=== PATIENT | female | born 1945 | race Caucasian/White ===

== ENCOUNTER → 2017-09-29 | Outpatient (CLI) | payer OTHER ==
[~2017-09-29] MED LIST: ALBU90OI INH; ASPI81EC; ASPI81EC PO; ATEN50; ATEN50 PO; ATOR10; Amoxicillin500 MG PO; CITA20 PO; CLOP75; CLOP75 PO; FISH1000 PO; FLAX PO; GINGER ROOT PO; HYDCHL25 PO; LISI10; LISI20 PO; MECL25 PO; METF500 PO; MULVITA PO; MULVITMINE; MULVITMINF PO; PRAV20 PO; PROM25S PR; RANI150 PO; VITB100 PO; VITNEPH PO; [UNRECOGNIZED DRUG - REMARK]
== END | disposition home or self-care (01) ==
LOC: LAB SHORT 09:52 → LAB EV 09:52
DX: R30.0 Dysuria (principal)
CPT/HCPCS: 87077; 87086; 87186

== ENCOUNTER 2017-11-03 05:39 | Day surgery (SDC) | payer OTHER ==
[~2017-11-03] VITALS: Ht 160 cm; Wt 171.0 kg
[2017-11-03] MEDS ORDERED: LISI20 PO (06:27)
[2017-11-03] MEDS ORDERED: MECL12.5 PO (06:31)
[2017-11-03] MEDS ORDERED: SIMV40 PO (06:31)
[2017-11-03] MEDS ORDERED: GABA100 PO (06:32)
== END 2017-11-03 13:00 | disposition home or self-care (01) ==
LOC: MHTC 05:39
DX: I25.10 Atherosclerotic heart disease of native coronary artery without angina pectoris (principal); T82.855A Stenosis of coronary artery stent, initial encounter; I34.0 Nonrheumatic mitral (valve) insufficiency; I73.9 Peripheral vascular disease, unspecified; E78.00 Pure hypercholesterolemia, unspecified; E78.5 Hyperlipidemia, unspecified; Z95.5 Presence of coronary angioplasty implant and graft; I25.2 Old myocardial infarction; I12.9 Hypertensive chronic kidney disease with stage 1 through stage 4 chronic kidney disease, or unspecified chronic kidney disease; E11.22 Type 2 diabetes mellitus with diabetic chronic kidney disease; N18.9 Chronic kidney disease, unspecified; E66.01 Morbid (severe) obesity due to excess calories; Z79.02 Long term (current) use of antithrombotics/antiplatelets; Z79.84 Long term (current) use of oral hypoglycemic drugs; Z79.899 Other long term (current) drug therapy; Z79.82 Long term (current) use of aspirin; Z82.49 Family history of ischemic heart disease and other diseases of the circulatory system; Z68.30 Body mass index [BMI] 30.0-30.9, adult
CPT/HCPCS: 93458; 99152; 99153; C1769; C1894; J1644; J2250; J3010; J7030; J7040; Q9967

== ENCOUNTER → 2018-02-05 | Outpatient (CLI) | payer OTHER ==
[~2018-02-05] MED LIST changes: +GABA100 PO; +MECL12.5 PO; +SIMV40 PO
== END | disposition home or self-care (01) ==
LOC: LAB SHORT 09:40 → LAB EV 09:40
DX: R30.0 Dysuria (principal)
CPT/HCPCS: 87077; 87086; 87186

== ENCOUNTER 2019-08-24 11:23 | Emergency (ER) | payer OTHER ==
[~2019-08-24] VITALS: Ht 157.5 cm; Wt 86.2 kg
[2019-08-24] MEDS ORDERED: OXYC5 PO (12:39)
== END 2019-08-24 13:06 | disposition home or self-care (01) ==
LOC: ER 11:23
DX: S52.502A Unspecified fracture of the lower end of left radius, initial encounter for closed fracture (principal); S90.32XA Contusion of left foot, initial encounter; Z88.5 Allergy status to narcotic agent; Z88.8 Allergy status to other drugs, medicaments and biological substances; Z79.899 Other long term (current) drug therapy; W19.XXXA Unspecified fall, initial encounter
CPT/HCPCS: 29125; 73110; 99283-25; A9270

== ENCOUNTER 2020-03-05 03:15 | Inpatient (IN) | payer OTHER ==
[~2020-03-05] VITALS: Ht 167.6 cm; Wt 93.0 kg
[~2020-03-05 03:15] MED LIST changes: +OXYC5 PO
[2020-03-05] MEDS ORDERED: OMEP20ER PO (03:40)
[2020-03-05] MEDS ORDERED: GLIP5 PO (03:43)
[2020-03-05] MEDS ORDERED: Mirapex0.125 MG PO (03:44)
[2020-03-05] MEDS ORDERED: MELO7.5 PO (03:44)
[2020-03-05 03:54] LABS: BASOPHILS ABSOLUTE AUTO 0.09 K/mm3 (0.00-0.23); BASOPHILS PERCENT AUTO 1 % (0-2); EOSINOPHILS ABSOLUTE AUTO 0.62 K/mm3 (0.00-0.68); EOSINOPHILS PERCENT AUTO 5 % (0-6); Hematocrit 36.3 % (33.0-51.0); Hemoglobin 11.6 g/dL (11.5-16.0); IMMATURE GRAN ABSOLUTE AUTO 0.05 K/mm3 (0.00-0.10); IMMATURE GRAN PERCENT AUTO 0 % (0-1); LYMPHOCYTES ABSOLUTE AUTO 4.97 K/mm3 (0.84-5.20); LYMPHOCYTES PERCENT AUTO 39 % (21-46); MONOCYTES ABSOLUTE AUTO 0.51 K/mm3 (0.16-1.47); MONOCYTES PERCENT AUTO 4 % (4-13); Mean Corpuscular HGB 30.6 pg (26.0-34.0); Mean Corpuscular Volume 96 fL (80-100); Mean Platelet Volume 10.1 fL (9.1-12.4); NEUTROPHILS ABSOLUTE AUTO 6.48 K/mm3 (1.96-9.15); NEUTROPHILS PERCENT AUTO 51 % (41-73); Platelet Count 397 K/mm3 (150-400); RDW Coefficient Variation 13.7 % (11.7-14.2); RDW Standard Deviation 48.2 fL (35.1-46.3); Red Blood Cell Count 3.79 M/mm3 (3.80-5.20); White Blood Cell Count 12.72 K/mm3 (4.00-11.30)
[2020-03-05 04:10] LABS: Albumin, Blood 3.2 g/dL (3.4-5.0); Albumin/Globulin Ratio 0.8 (0.8-1.8); Bilirubin, Total 0.5 mg/dL (0.1-1.0); Bun/Creatinine Ratio 14.2 (12.0-20.0); Creatinine, Blood 1.06 mg/dL (0.40-1.00); Potassium, Blood 4.2 mmol/L (3.5-5.5); Total Protein, Blood 7.2 g/dL (6.4-8.2); Troponin I 0.119 ng/mL (0.000-0.040)
[2020-03-05 05:45] LABS: Influenza A, PCR Negative (NEGATIVE); Influenza B, PCR Negative (NEGATIVE); Resp Syncytial Virus, PCR Negative (NEGATIVE); SARS-Cov-2 (COVID-19) PCR, MMC Negative (NEGATIVE)
[2020-03-05 05:54] LABS: PCO2 Arterial 35.7 mmHg (35-45); PO2 Arterial 104 mmHg (80-100); pH Blood Arterial 7.33 (7.35-7.45)
--- NOTE | 2020-03-05 09:21 | NUR ---
ASSUMED CARE FROM POLICY ANALYST PT ARRIVED TO PCU THIS MORNING AT APPROXIMATELY 0800. BP IS SLIGHTLY ELEVATED BUT PT HAS BEEN GIVEN MORNING MEDICATIONS. PT ARRIVED ON BIPAP BUT WAS CHANGED TO NC 6L BY RESPIRATORY THERAPY. PT WAS ABLE TO AMBULATE TO THE BATHROOM UPON ARRIVAL TO THE ROOM. PT IS NOW RESTING IN BED. PT DENIES PAIN AND DISCOMFORT AT THIS TIME. CBG WAS ELEVATED WELL; INSULIN WAS PROVIDED PER EMAR ORDER. TELE BOX CONFIRMED WITH LOI LANG, U TECH; SR HR 99.
[2020-03-05] MEDS ORDERED: MELATONIN5 M1 PO (09:25)
[2020-03-05] MEDS ORDERED: METF500 PO (09:28)
[2020-03-05] MEDS ORDERED: LISI20 PO (09:29)
[2020-03-05] MEDS ORDERED: MOTION RELIEF25 MG PO (09:31)
[2020-03-05] MEDS ORDERED: MECL25 PO (09:32)
--- NOTE | 2020-03-05 13:10 | NUR ---
AT APPROXIMATELY 1215 THE BRASS MOLDER HELPER CALLED JOHNNA ANDRADE INTO THE ROOM THE PT WAS ACTIVELY VOMITTING. AFTER ASSESSING THE PT IT WAS FOUND THAT HER TONGUE AND LIPS WERE SWELLING AND APPEARED TO BE AN ALLERGIC REACTION. DR. COVARRUBIAS WAS CALLED AND IMMEDIATELY CAME TO BEDSIDE. PT WAS GIVEN SOLUMEDROL, BENADRYL AND ZOFRAN TO HELP WITH THE NAUSEA AND REACTION. PT'S SATURATION MAINTAINED ABOVE 92% ON O2. PT DENIED PAIN, SOB OR ITCHING. PT IS IN HER BED RESTING AT THIS TIME
--- NOTE | 2020-03-05 19:13 | NUR ---
NO ACUTE EVENTS THE REST OF THE SHIFT POST ALLERGIC EVENT, VSS. PATIENT ALERT AND ORIENTED THROUGH SHIFT, PATIENT STANDBY ASSIST TO BATHROOM, PATIENT ALMOST LOST BALANCE ONCE THIS SHIFT WHILE WALKING WITH THIS RN. IV ABX WERE ONLY NEW MEDS, CHANGED AFTER ALLERGIC EVENT, NO FURTHER ISSUES WITH MEDICATION REACTIONS THIS SHIFT. LACTIC ACID ELEVATED, BLOOD SUGAR ELEVATED THROUGH SHIFT. PATIENT WAS ABLE TO TOLERATE PO INTAKE FOR DINNER, DENIED CHEST PAIN PRESSURE THIS SHIFT TO THIS RN.
[2020-03-06 04:32] LABS: BASOPHILS ABSOLUTE AUTO 0.02 K/mm3 (0.00-0.23); BASOPHILS PERCENT AUTO 0 % (0-2); EOSINOPHILS PERCENT AUTO 0 % (0-6); Hemoglobin 10.2 g/dL (11.5-16.0); IMMATURE GRAN ABSOLUTE AUTO 0.14 K/mm3 (0.00-0.10); IMMATURE GRAN PERCENT AUTO 1 % (0-1); LYMPHOCYTES ABSOLUTE AUTO 1.55 K/mm3 (0.84-5.20); LYMPHOCYTES PERCENT AUTO 9 % (21-46); MONOCYTES ABSOLUTE AUTO 0.45 K/mm3 (0.16-1.47); MONOCYTES PERCENT AUTO 3 % (4-13); Mean Corpuscular HGB 30.4 pg (26.0-34.0); Mean Corpuscular HGB Conc 31.9 g/dL (31.5-36.5); Mean Corpuscular Volume 95 fL (80-100); Mean Platelet Volume 9.9 fL (9.1-12.4); NEUTROPHILS ABSOLUTE AUTO 14.55 K/mm3 (1.96-9.15); NEUTROPHILS PERCENT AUTO 87 % (41-73); Platelet Count 333 K/mm3 (150-400); RDW Coefficient Variation 13.9 % (11.7-14.2); RDW Standard Deviation 48.6 fL (35.1-46.3); Red Blood Cell Count 3.36 M/mm3 (3.80-5.20); White Blood Cell Count 16.71 K/mm3 (4.00-11.30)
--- NOTE | 2020-03-06 04:47 | NUR ---
SHIFT SUMMARY PT STATED FEELING MUCH BETTER T/O SHIFT. PT UP TO BATHROOM WITH ASSISTANCE, NO SOB AND NO DROP IN O2 SATS. PT ON 3LPM VIA NC WITH 02 SATS >90%. BP STABLE, UP TO 166/96 IN AM. HR 80-100'S. PT REPORTED NO DIFFICULTIES BREATHING, LUNGS MOSTLY CLEAR/DIM. PT CURRENTLY SLEEPING IN BED, HOB 30.
[2020-03-06 04:48] LABS: Bun/Creatinine Ratio 18.7 (12.0-20.0); Calcium, Blood 9.8 mg/dL (8.5-10.1); Creatinine, Blood 1.93 mg/dL (0.40-1.00); Potassium, Blood 4.6 mmol/L (3.5-5.5)
--- NOTE | 2020-03-06 07:59 | NUR ---
ASSUMED CARE FROM NOC RN PT WAS SLEEPING AT THE TIME OF SHIFT CHANGE. PT AWOKE SOON AFTER TO USE THE BSC AND HAVE HER BLOOD SUGAR TAKEN. PT IS CURRENTLY ON 3L O2 VIA NC TO MAINTAIN SATS ABOVE 92%. PT DENIES ANY PAIN OR DISCOMFORT. VS STABLE; CBG SLIGHTLY ELEVATED; INSULIN AND MORNING MEDS ADMINISTERED. PT IS NOW RESTING IN BED, TALKING WITH FAMILY ON THE PHONE WHILE EATING BREAKFAST
[2020-03-06 16:11] LABS: SARS COV-2 IGG AB Negative (Negative); SARS COV-2 IGM AB Negative (Negative)
--- NOTE | 2020-03-06 17:15 | NUR ---
TRANSFER OF CARE TO MEDICAL UNIT PT LEFT PCU AT APPROXIMATELY 1700 VIA WHEELCHAIR ACCOMPANIED BY REMELT WORKER. PT WAS TAKEN WITH PERSONAL BELONGINGS AND HER HOSPITAL PROVIDED INSULIN TO MEDICAL RM 303; REPORT WAS GIVEN TO JOHNNA JAVIER. VS STABLE; PT ON 3L O2 VIA NC
--- NOTE | 2020-03-06 18:05 | NUR ---
SHIFT SUMMARY PATIENT TO THE FLOOR LATE THIS AFTERNOON. PATIENT ARRIVED VIA WHEELCHAIR. PATIENT TRANSFERED TO THE CHAIR INDEPENDENTLY. PATIENT ALERT AND ORIENTED. PATIENT REMAINS ON 3L O2. PATIENT WITHOUT RESPIRATORY DISRTESS. PATIENT DENIES PAIN OR OTHER NEEDS. PATIENT SITTING UP IN BED EATING DINNER, WATCHING TELEVISION.
--- NOTE | 2020-03-06 19:49 | NUR ---
PHYSICIAN COMMUNICATION THIS RN SPOKE WITH SIGNS SALES REPRESENTATIVE PHYSICIAN, BRIAN NASH, TO NOTIFY HER THAT THE PATIENT TYPICALLY TAKES 5 MG MELATONIN PO NIGHTLY AT HOME AND SHE WAS REQUESTING TO HAVE IT ORDERED WHILE HERE IN THE HOSPITAL. SHANNAN NASH APPROVED OF THE ORDER.
[2020-03-07 05:04] LABS: BASOPHILS ABSOLUTE AUTO 0.01 K/mm3 (0.00-0.23); BASOPHILS PERCENT AUTO 0 % (0-2); EOSINOPHILS ABSOLUTE AUTO 0.01 K/mm3 (0.00-0.68); EOSINOPHILS PERCENT AUTO 0 % (0-6); Hematocrit 29.8 % (33.0-51.0); Hemoglobin 9.7 g/dL (11.5-16.0); IMMATURE GRAN ABSOLUTE AUTO 0.15 K/mm3 (0.00-0.10); IMMATURE GRAN PERCENT AUTO 1 % (0-1); LYMPHOCYTES ABSOLUTE AUTO 2.18 K/mm3 (0.84-5.20); LYMPHOCYTES PERCENT AUTO 12 % (21-46); MONOCYTES ABSOLUTE AUTO 1.04 K/mm3 (0.16-1.47); MONOCYTES PERCENT AUTO 6 % (4-13); Mean Corpuscular HGB 31.1 pg (26.0-34.0); Mean Corpuscular HGB Conc 32.6 g/dL (31.5-36.5); Mean Corpuscular Volume 96 fL (80-100); Mean Platelet Volume 10.3 fL (9.1-12.4); NEUTROPHILS ABSOLUTE AUTO 15.25 K/mm3 (1.96-9.15); NEUTROPHILS PERCENT AUTO 82 % (41-73); Platelet Count 297 K/mm3 (150-400); RDW Coefficient Variation 13.9 % (11.7-14.2); RDW Standard Deviation 48.4 fL (35.1-46.3); Red Blood Cell Count 3.12 M/mm3 (3.80-5.20); White Blood Cell Count 18.64 K/mm3 (4.00-11.30)
[2020-03-07 05:21] LABS: Bun/Creatinine Ratio 29.7 (12.0-20.0); Calcium, Blood 9.3 mg/dL (8.5-10.1); Creatinine, Blood 1.85 mg/dL (0.40-1.00); Potassium, Blood 4.8 mmol/L (3.5-5.5)
--- NOTE | 2020-03-07 05:51 | NUR ---
SHIFT SUMMARY PATIENT ALERT AND ORIENTED. STAYED IN BED AND RESTED ALL NIGHT, EXCEPT FOR WHEN SHE NEEDED TO USE THE RESTROOM. PT HAD NO COMPLAINTS OF PAIN OR SHORTNESS OF BREATH. IV PATENT AND FLUSHED. BED IN LOWEST POSITION WITH WHEELS LOCKED. CALL LIGHT WITHIN REACH. REPORT GIVEN TO ONCOMING RN.
[2020-03-07 13:32] LABS: Influenza A, PCR NEGATIVE (NEGATIVE); Influenza B, PCR NEGATIVE (NEGATIVE); Resp Syncytial Virus, PCR NEGATIVE (NEGATIVE); SARS-Cov-2 (COVID-19) PCR, MMC NEGATIVE (NEGATIVE)
--- NOTE | 2020-03-07 18:21 | NUR ---
PT RESTING IN BED AFTER EATING DINNER AND MEDICATION ADMIN. PT MAKES NO COMPLAINTS AT THIS TIME. IV LINE IS WNL AND SL. PT IS ALERT AND ORIENTED X4. STAFF WILL CONT. TO MONITOR.
--- NOTE | 2020-03-08 05:52 | NUR ---
SHIFT SUMMARY PATIENT ALERT AND ORIENTED. HAD NO COMPLAINTS OF PAIN OR SHORNTESS OF BREATH. PATIENT WAS ABLE TO SLEEP WELL OVERNIGHT AND HAD MINIMAL NEEDS. IV PATENT AND FLUSHED. BED IN LOWEST POSITION WITH WHEELS LOCKED. CALL LIGHT WITHIN REACH. REPORT GIVEN TO ONCOMING RN.
[2020-03-08 07:49] LABS: Bun/Creatinine Ratio 36.8 (12.0-20.0); Calcium, Blood 9.3 mg/dL (8.5-10.1); Creatinine, Blood 1.52 mg/dL (0.40-1.00); Potassium, Blood 4.5 mmol/L (3.5-5.5)
--- NOTE | 2020-03-08 18:15 | NUR ---
PT RESTING IN BED AFTER DINNER AND PM MEDICATIONS. COREG HELD DUE TO LOW BP AND MSG LEFT FOR MD. PT IS ALERT AND ORIENTED, IV FLUSHED, SL AND WNL. PT MAKES NO COMPLAINTS AT THIS TIME. STAFF WILL CONT. TO MONITOR.
[2020-03-09 04:59] LABS: Calcium, Blood 9.6 mg/dL (8.5-10.1); Creatinine, Blood 1.44 mg/dL (0.40-1.00); Potassium, Blood 3.9 mmol/L (3.5-5.5)
--- NOTE | 2020-03-09 05:54 | NUR ---
SHIFT SUMMARY PATIENT ALERT AND ORIENTED. HAD NO COMPLAINTS OF PAIN OR SHORTNESS OF BREATH. WAS ABLE TO SLEEP WELL OVERNIGHT. IV PATENT AND FLUSHED. BED IN LOWEST POSITION WITH WHEELS LOCKED. CALL LIGHT WITHIN REACH. REPORT GIVEN TO ONCOMING RN.
[2020-03-09] MEDS ORDERED: CARV6.25 PO (12:10)
[2020-03-09] MEDS ORDERED: BASAGLAR K100 UNIT/1 SC (12:11)
[2020-03-09] MEDS ORDERED: INSULANPEN SC (12:12)
[2020-03-09] MEDS ORDERED: FURO40 PO (12:12)
--- NOTE | 2020-03-09 15:13 | NUR ---
REVIEW D'C WITH PATIENT. AWARE HAS F/U APPT 03/16 AT 0900. REVIEW ALL MEDS. GIVEN HIGH SLIDING SCALE FOR SHORT ACTING INSULIN. AWARE CAN RETURN TO E.R IF ANY PROBLEMS. ANSWER ALL QUESTIONS. IN W/C TO POV WITH S.O. DRIVING. IV D'C W/NO SWELLING OR BRUISING.
== END 2020-03-09 15:17 | disposition home or self-care (01) | DRG 280 ==
LOC: ER 03:15 → PCU 05:14 → ERHOLD 05:14 → PCU 08:13 → MEDS 03-06 17:10 → ENPENDDIS 03-09 11:01 → MEDS 03-09 15:17
PROVIDERS: Emergency Medicine; Internal Medicine; ADMIT Family Medicine
PROC: 5A09357 Assistance with Respiratory Ventilation, Less than 24 Consecutive Hours, Continuous Positive Airway Pressure (ICD-10-PCS; principal; 2020-03-05)
PROC: 3E02340 Introduction of Influenza Vaccine into Muscle, Percutaneous Approach (ICD-10-PCS; 2020-03-05)
DX: I13.0 Hypertensive heart and chronic kidney disease with heart failure and stage 1 through stage 4 chronic kidney disease, or unspecified chronic kidney disease (principal); J96.01 Acute respiratory failure with hypoxia; I21.A1 Myocardial infarction type 2; I50.23 Acute on chronic systolic (congestive) heart failure; E87.2 Acidosis; N17.9 Acute kidney failure, unspecified; R65.10 Systemic inflammatory response syndrome (SIRS) of non-infectious origin without acute organ dysfunction; Z79.82 Long term (current) use of aspirin; I25.10 Atherosclerotic heart disease of native coronary artery without angina pectoris; Z95.1 Presence of aortocoronary bypass graft; I77.1 Stricture of artery; N18.30 Chronic kidney disease, stage 3 unspecified; K21.9 Gastro-esophageal reflux disease without esophagitis; E11.22 Type 2 diabetes mellitus with diabetic chronic kidney disease; Z79.84 Long term (current) use of oral hypoglycemic drugs; E78.5 Hyperlipidemia, unspecified; G25.81 Restless legs syndrome; J45.909 Unspecified asthma, uncomplicated; T78.3XXA Angioneurotic edema, initial encounter; T88.7XXA Unspecified adverse effect of drug or medicament, initial encounter; T36.95XA Adverse effect of unspecified systemic antibiotic, initial encounter; Z20.822 Contact with and (suspected) exposure to COVID-19; Z23 Encounter for immunization
CPT/HCPCS: 0241U; 36415; 36600; 71045; 80048; 80053; 82803; 82947; 83036; 83605; 83880; 84145; 84484; 85025; 86769; 87040; 87070; 87205; 93005; 93010; 93308; 93321; 94660; 94760; 94761; 94762; 96365; 99285-25; A9270; G0008; J0456; J0696; J1200; J1644; J1650; J1815; J1940; J1956; J2405; J2543; J2930; J7050; Q2038

== ENCOUNTER 2021-04-15 07:29 | Day surgery (SDC) | payer OTHER ==
[~2021-04-15] VITALS: Ht 157.5 cm; Wt 86.3 kg
[~2021-04-15 07:29] MED LIST changes: +BASAGLAR K100 UNIT/1 SC; +CARV6.25 PO; +Cleocin HCl300 MG PO; +FURO40 PO; +GLIP5 PO; +INSULANPEN SC; +MELATONIN5 M1 PO; +MELO7.5 PO; +MOTION RELIEF25 MG PO; +Mirapex0.125 MG PO; +OMEP20ER PO
--- NOTE | 2021-04-15 08:27 | NUR ---
04/15/21 0827 CAESAR PEREZ TETRACAINE DROP INSTILLED AT 0819 PLEDGETT INSERTED AT 0821
== END 2021-04-15 09:59 | disposition home or self-care (01) ==
LOC: ORSCSDS 07:29
PROVIDERS: Ophthalmology
PROC: 08RJ3JZ Replacement of Right Lens with Synthetic Substitute, Percutaneous Approach (ICD-10-PCS; principal; 2021-04-15 09:00)
DX: H25.11 Age-related nuclear cataract, right eye (principal); E11.36 Type 2 diabetes mellitus with diabetic cataract; I25.10 Atherosclerotic heart disease of native coronary artery without angina pectoris; E78.5 Hyperlipidemia, unspecified; I10 Essential (primary) hypertension; E66.01 Morbid (severe) obesity due to excess calories; Z68.36 Body mass index [BMI] 36.0-36.9, adult; I25.2 Old myocardial infarction; I50.9 Heart failure, unspecified; N18.9 Chronic kidney disease, unspecified; Z79.4 Long term (current) use of insulin; Z79.899 Other long term (current) drug therapy
CPT/HCPCS: 82947; J2001; J2250; J3010; J3301; J7040; V2632

== ENCOUNTER 2021-05-13 08:06 | Day surgery (SDC) | payer OTHER ==
[~2021-05-13] VITALS: Ht 157.5 cm; Wt 85.5 kg
== END 2021-05-13 10:52 | disposition home or self-care (01) ==
LOC: ORSCSDS 08:06
PROVIDERS: Ophthalmology
PROC: 08RK3JZ Replacement of Left Lens with Synthetic Substitute, Percutaneous Approach (ICD-10-PCS; principal; 2021-05-13 10:00)
DX: H25.12 Age-related nuclear cataract, left eye (principal); Z79.899 Other long term (current) drug therapy; I25.10 Atherosclerotic heart disease of native coronary artery without angina pectoris; E11.9 Type 2 diabetes mellitus without complications; E78.5 Hyperlipidemia, unspecified; I10 Essential (primary) hypertension; Z79.82 Long term (current) use of aspirin; Z79.4 Long term (current) use of insulin
CPT/HCPCS: 82947; J2001; J2250; J3010; J3301; J7040; V2632

== ENCOUNTER → 2021-05-19 | Outpatient (CLI) | payer OTHER | END | disposition home or self-care (01) | LOC: LAB 12:00 → LAB SHORT 12:00 | DX: L08.9 Local infection of the skin and subcutaneous tissue, unspecified (principal) | CPT/HCPCS: 87070; 87075; 87077; 87186; 87205 ==

== ENCOUNTER 2023-01-24 02:19 | Observation (INO) | payer OTHER ==
[~2023-01-24] VITALS: Ht 157.5 cm; Wt 82.8 kg
[~2023-01-24 02:19] MED LIST changes: -ASPI81EC PO; +Aspir 8181 MG PO; +Celexa20 MG PO; +GLIP10ER PO; +LOSA25 PO; +MIRALAX17 GM PO
[2023-01-24] MEDS ORDERED: SEMGLEE (Y100 UNIT/2 SQ (02:42)
[2023-01-24 02:55] LABS: BASOPHILS ABSOLUTE AUTO 0.05 K/mm3 (0.00-0.23); BASOPHILS PERCENT AUTO 0 % (0-2); EOSINOPHILS ABSOLUTE AUTO 0.24 K/mm3 (0.00-0.68); EOSINOPHILS PERCENT AUTO 2 % (0-6); Hematocrit 32.1 % (33.0-51.0); Hemoglobin 10.6 g/dL (11.5-16.0); IMMATURE GRAN ABSOLUTE AUTO 0.03 K/mm3 (0.00-0.10); IMMATURE GRAN PERCENT AUTO 0 % (0-1); LYMPHOCYTES ABSOLUTE AUTO 2.11 K/mm3 (0.84-5.20); LYMPHOCYTES PERCENT AUTO 19 % (21-46); MONOCYTES ABSOLUTE AUTO 0.38 K/mm3 (0.16-1.47); MONOCYTES PERCENT AUTO 3 % (4-13); Mean Corpuscular HGB 30.7 pg (26.0-34.0); Mean Corpuscular Volume 93 fL (80-100); Mean Platelet Volume 9.4 fL (9.1-12.4); NEUTROPHILS ABSOLUTE AUTO 8.35 K/mm3 (1.96-9.15); NEUTROPHILS PERCENT AUTO 75 % (41-73); Platelet Count 297 K/mm3 (150-400); Red Blood Cell Count 3.45 M/mm3 (3.80-5.20); White Blood Cell Count 11.16 K/mm3 (4.00-11.30)
[2023-01-24 04:06] LABS: Ethanol (Alcohol), Blood, Med <3 mg/dL; Thyroid Stimulating Hormone 0.636 uIU/mL (0.360-4.800)
[2023-01-24 04:08] LABS: Alanine Aminotransfer (ALT/SGP 12 U/L (12-78); Albumin, Blood 1.9 g/dL (3.4-5.0); Albumin/Globulin Ratio 0.7 (0.8-1.8); Alk Phos 70 U/L (50-136); Anion Gap 4 mmol/L (6-16); Aspartate Aminotrans (AST/SGOT 12 U/L (12-37); Bilirubin, Total <0.1 mg/dL (0.1-1.0); Blood Urea Nitrogen 15 mg/dL (8-24); Bun/Creatinine Ratio 18.6 (12.0-20.0); CO2, Blood 19 mmol/L (21-32); Calcium, Blood 6.1 mg/dL (8.5-10.1); Chloride, Blood 127 mmol/L (98-108); Creatinine, Blood 0.81 mg/dL (0.40-1.00); Globulin, Blood 2.6 g/dL (2.2-4.0); Glomerular Filtration Rate 76 (60-); Glucose, Blood 145 mg/dL (70-99); Magnesium, Blood 1.1 mg/dL (1.6-2.4); Phosphorus, Blood 1.6 mg/dL (2.5-4.9); Potassium, Blood 2.5 mmol/L (3.5-5.5); Sodium, Blood 150 mmol/L (136-145); Total Protein, Blood 4.5 g/dL (6.4-8.2)
[2023-01-24 04:19] LABS: Base Excess Venous -2.3 mmol/L; PCO2 Venous 48.9 mmHg (38-42)
[2023-01-24 04:22] LABS: International Normalized Ratio 0.97; Prothrombin Time Results 10.2 Sec (9.7-11.5)
[2023-01-24 04:23] LABS: Source, Urine Straight Cath
[2023-01-24 04:26] LABS: Bilirubin, Urine Neg (Neg); Blood, Urine 1+ (Neg); Glucose Qualitative, Urine Neg (Neg); Ketones, Urine Neg (Neg); Leukocyte Esterase, Urine 1+ (Neg); Nitrite, Urine Neg (Neg); Protein, Urine 3+ (Neg); Urobilinogen, Urine NORM (Normal)
[2023-01-24 04:35] LABS: Color, Urine Pale Yellow (P-Yellow)
[2023-01-24 04:36] LABS: Appearance, Urine Hazy (Clear)
[2023-01-24 04:37] LABS: Amorphous Light (0-Heavy); Bacteria Few /hpf; Granular Casts 0-2 /lpf (0); Red Blood Cells, Urine 0-2 /hpf (0-2); Squamous Epithelial Cells Few /hpf (Few)
[2023-01-24 04:43] LABS: Influenza A, PCR NEGATIVE (NEGATIVE); Influenza B, PCR NEGATIVE (NEGATIVE); Resp Syncytial Virus, PCR NEGATIVE (NEGATIVE); SARS-Cov-2 (COVID-19) PCR, MMC NEGATIVE (NEGATIVE)
[2023-01-24 05:14] LABS: U Amphetamine Screen Not Detected; U Barbituate Screen Not Detected; U Benzodiazapine Screen Not Detected; U Buprenorphine Screen Not Detected; U Cannabinoids Screen Not Detected; U Cocaine Screen Not Detected; U Methadone Screen Not Detected; U Methamphetamine Screen Not Detected; U Opiates Screen Not Detected; U Oxycodone Screen Not Detected; U Phencyclidine Screen Not Detected
[2023-01-24 10:31] VITALS: BP 111/97
[2023-01-24 10:34] VITALS: BP 121/86
[2023-01-24 14:46] LABS: Blood Urea Nitrogen 16 mg/dL (8-24); Bun/Creatinine Ratio 16.1 (12.0-20.0); CO2, Blood 23 mmol/L (21-32); Chloride, Blood 112 mmol/L (98-108); Glomerular Filtration Rate 59 (60-); Glucose, Blood 155 mg/dL (70-99); Phosphorus, Blood 2.5 mg/dL (2.5-4.9); Potassium, Blood 4.3 mmol/L (3.5-5.5)
[2023-01-24 14:49] LABS: Anion Gap 4 mmol/L (6-16); Calcium, Blood 9.5 mg/dL (8.5-10.1); Sodium, Blood 139 mmol/L (136-145)
[2023-01-24 15:04] VITALS: BP 107/77
--- NOTE | 2023-01-24 16:20 | NUR ---
"Spiritual Care | Pt. Request. Pt. is awake and sitting up on the side of the bed when she welcomes my visit. Facilitate a life review and update since the Pts. last hospitalization. Listen with interest and emapthy. Pt. displayed evidence of engagement and trust. Prayed with Pt. Pt. verbalized gratitude for the spiritual carfe visit and welcomed this supervisor patching to return in the morning."
--- NOTE | 2023-01-24 18:37 | NUR ---
SUMMARY- PT A/O X4, UP TO BEDSIDE COMMODE INDEPENDANT AND STEADY ON FEET. STATES SHE FELT VERY TIRED THE DAYS PRIOR TO ADMIT. ELECTROLYTES ALL REPACED TODAY, FEELING BETTER ENERGY. TOLERATING FOOD AND FLUIDS. BLOOD SUGARS 160'S. WILL REPORT TO PUNEET OROPEZA
--- NOTE | 2023-01-24 18:45 | NUR ---
PT ADMITTED TO ROOM 362 VIA WHEELCHAIR, AMBULATED TO BED- (1020) ORIENTED TO ROOM AND CALL LIGHT. IVF INFUSING. WILL RECHECK RENAL LABS 1400. PT ALERT AND ORIENTED X4, VERBAL AND PLEASANT.
[2023-01-24 19:14] VITALS: BP 106/74
[2023-01-25 03:32] VITALS: BP 121/106
[2023-01-25 05:41] LABS: BASOPHILS ABSOLUTE AUTO 0.06 K/mm3 (0.00-0.23); BASOPHILS PERCENT AUTO 1 % (0-2); EOSINOPHILS ABSOLUTE AUTO 0.53 K/mm3 (0.00-0.68); EOSINOPHILS PERCENT AUTO 7 % (0-6); Hematocrit 33.3 % (33.0-51.0); Hemoglobin 10.9 g/dL (11.5-16.0); IMMATURE GRAN ABSOLUTE AUTO 0.02 K/mm3 (0.00-0.10); IMMATURE GRAN PERCENT AUTO 0 % (0-1); LYMPHOCYTES ABSOLUTE AUTO 3.72 K/mm3 (0.84-5.20); LYMPHOCYTES PERCENT AUTO 46 % (21-46); MONOCYTES ABSOLUTE AUTO 0.51 K/mm3 (0.16-1.47); MONOCYTES PERCENT AUTO 6 % (4-13); Mean Corpuscular HGB 30.7 pg (26.0-34.0); Mean Corpuscular HGB Conc 32.7 g/dL (31.5-36.5); Mean Corpuscular Volume 94 fL (80-100); Mean Platelet Volume 10.1 fL (9.1-12.4); NEUTROPHILS ABSOLUTE AUTO 3.34 K/mm3 (1.96-9.15); NEUTROPHILS PERCENT AUTO 41 % (41-73); Platelet Count 321 K/mm3 (150-400); RDW Standard Deviation 44.7 fL (35.1-46.3); Red Blood Cell Count 3.55 M/mm3 (3.80-5.20); White Blood Cell Count 8.18 K/mm3 (4.00-11.30)
[2023-01-25 06:18] LABS: Magnesium, Blood 1.9 mg/dL (1.6-2.4)
[2023-01-25 06:19] LABS: Albumin, Blood 2.8 g/dL (3.4-5.0); Albumin/Globulin Ratio 0.7 (0.8-1.8); Bilirubin, Total 0.2 mg/dL (0.1-1.0); Bun/Creatinine Ratio 17.3 (12.0-20.0); Calcium, Blood 9.5 mg/dL (8.5-10.1); Creatinine, Blood 1.04 mg/dL (0.40-1.00); Globulin, Blood 3.8 g/dL (2.2-4.0); Potassium, Blood 5.1 mmol/L (3.5-5.5)
[2023-01-25 06:22] LABS: Total Protein, Blood 6.6 g/dL (6.4-8.2)
[2023-01-25 07:31] VITALS: BP 189/95
[2023-01-25 11:45] VITALS: BP 101/82
[2023-01-25 14:42] VITALS: BP 131/80
--- NOTE | 2023-01-25 17:57 | NUR ---
SUMMARY- PT A/O X4, INDEPENDANT IN ROOM. ELECTROLYTES STABALIZED. PLAN FOR DC AFTER DINNER AFTER BLOOD SUGAR CHECKED. PLAN TO DECREASE LONG ACTING GLARGINE AND DC PRILOSEC. INFORMATION GIVEN ON ELECTROLYTE REPLACEMENT MG AND K AND ANTACID FOR HEART BURN. ALSO DIABETIC TEACHING. INSTRUCTED TO HAVE AN HS SNACK TONIGHT. IV DC. PT WILL DC AFTER DINNNER
--- NOTE | 2023-01-25 18:44 | NUR ---
PT DISCHARGED 1824 WITH DC INSTRUCTIONS. WHEELCHAIR OUTSIDE TO PRIVATE CAR, SON TO DRIVE PT HOME.
== END 2023-01-25 18:22 | disposition home or self-care (01) ==
LOC: ER 02:19 → MEDS 02:20
PROVIDERS: Emergency Medicine; Family Medicine; ADMIT Internal Medicine
DX: E87.6 Hypokalemia (principal); N39.0 Urinary tract infection, site not specified; K21.9 Gastro-esophageal reflux disease without esophagitis; I10 Essential (primary) hypertension; E83.42 Hypomagnesemia; E83.39 Other disorders of phosphorus metabolism; G25.81 Restless legs syndrome; E11.9 Type 2 diabetes mellitus without complications; Z72.0 Tobacco use; Z95.5 Presence of coronary angioplasty implant and graft; Z88.5 Allergy status to narcotic agent; Z88.1 Allergy status to other antibiotic agents
CPT/HCPCS: 0241U; 36415; 70450; 71045; 80053; 80069; 81001; 82140; 82803; 82947; 83605; 83690; 83735; 84100; 84443; 84484; 85025; 85610; 85730; 87086; 87147; 93005; 93010; 96361; 96365; 96366; 96367; 96368; 96372; 96375; 96376; 97161; 97165; 97530; 97535; 99285-25; A9270; G0378; J0744; J1650; J1815; J3475; J3480; J7030; J7060; J7120

== ENCOUNTER 2023-07-26 07:35 | Inpatient (IN) | payer OTHER ==
[~2023-07-26] VITALS: Ht 157.5 cm; Wt 79.2 kg
[~2023-07-26 07:35] MED LIST changes: +SEMGLEE (Y100 UNIT/2 SQ
[2023-07-26] MEDS ORDERED: Albuterol 2.5 MG/3 ML VIAL INH SCH (07:45)
[2023-07-26 07:52] LABS: Bicarbonate Venous 18.2 mmol/L (24.0-30.0); PCO2 Venous 49.2 mmHg (38-42)
[2023-07-26 07:53] LABS: pH Blood Venous 7.23 (7.34-7.37)
[2023-07-26 08:06] LABS: BASOPHILS ABSOLUTE AUTO 0.07 K/mm3 (0.00-0.23); BASOPHILS PERCENT AUTO 1 % (0-2); EOSINOPHILS ABSOLUTE AUTO 0.49 K/mm3 (0.00-0.68); EOSINOPHILS PERCENT AUTO 5 % (0-6); Hematocrit 35.1 % (33.0-51.0); Hemoglobin 11.3 g/dL (11.5-16.0); IMMATURE GRAN ABSOLUTE AUTO 0.02 K/mm3 (0.00-0.10); IMMATURE GRAN PERCENT AUTO 0 % (0-1); LYMPHOCYTES ABSOLUTE AUTO 3.95 K/mm3 (0.84-5.20); LYMPHOCYTES PERCENT AUTO 41 % (21-46); MONOCYTES ABSOLUTE AUTO 0.48 K/mm3 (0.16-1.47); MONOCYTES PERCENT AUTO 5 % (4-13); Mean Corpuscular HGB 31.2 pg (26.0-34.0); Mean Corpuscular HGB Conc 32.2 g/dL (31.5-36.5); Mean Corpuscular Volume 97 fL (80-100); Mean Platelet Volume 9.9 fL (9.1-12.4); NEUTROPHILS ABSOLUTE AUTO 4.58 K/mm3 (1.96-9.15); NEUTROPHILS PERCENT AUTO 48 % (41-73); Platelet Count 347 K/mm3 (150-400); RDW Coefficient Variation 14.1 % (11.7-14.2); RDW Standard Deviation 50.4 fL (35.1-46.3); Red Blood Cell Count 3.62 M/mm3 (3.80-5.20); White Blood Cell Count 9.59 K/mm3 (4.00-11.30)
[2023-07-26 08:30] LABS: Albumin, Blood 3.2 g/dL (3.4-5.0); Albumin/Globulin Ratio 0.8 (0.8-1.8); Bilirubin, Total 0.4 mg/dL (0.1-1.0); Bun/Creatinine Ratio 16.1 (12.0-20.0); Calcium, Blood 9.8 mg/dL (8.5-10.1); Creatinine, Blood 1.12 mg/dL (0.40-1.00); Globulin, Blood 3.9 g/dL (2.2-4.0); Magnesium, Blood 1.7 mg/dL (1.6-2.4); Potassium, Blood 4.7 mmol/L (3.5-5.5); Total Protein, Blood 7.1 g/dL (6.4-8.2)
[2023-07-26] MEDS ORDERED: Furosemide 10 MG/ML 4ML Vial IV ONE (09:50)
[2023-07-26 10:44] LABS: Base Excess Venous -4.9 mmol/L; Bicarbonate Venous 20.3 mmol/L (24.0-30.0); PCO2 Venous 48.6 mmHg (38-42); pH Blood Venous 7.27 (7.34-7.37)
[2023-07-26] MEDS ORDERED: Acetaminophen 500 MG Tab PO PRN (11:05)
[2023-07-26] MEDS ORDERED: Polyethylene Glycol 3350 17 gm PO PRN (11:05)
[2023-07-26] MEDS ORDERED: Insulin Human Lispro 100 Units/ML 3ML Syringe SC SCH (11:30)
[2023-07-26 14:18] VITALS: BP 154/103
[2023-07-26] MEDS ORDERED: NOVOLOG FL100 UNIT/3 SC (14:41)
[2023-07-26] MEDS ORDERED: ACET500 PO (14:42)
--- NOTE | 2023-07-26 15:00 | NUR ---
ARRIVAL TO UNIT AND O2: PATIENT ARRIVED TO UNIT ON AN OXYMIZER AT 6LPM. PATIENT DENIED SHORTNESS OF BREATH OR DIFFICULTY BREATHING. MINIMAL FINE CRACKLES HEARD IN BASES. OTHERWISE, LUNG SOUNDS CLEAR. PATIENT APPEARS IN NO DISTRESS. PATIENT ABLE TO ANSWER QUESTIONS AND EAT WITHOUT DESATURATIONS. WITHIN THE FIRST HOUR OF ARRIVAL, ABLE TO TO TITRATE THE PATIENT'S O2 DOWN TO 2L O2 VIA OXYMIZER. PATIENT O2 >95%. PATIENT ALERT AND ORIENTED X4. PATIENT FOLLOWING DIRECTIONS. VITALS STABLE WITH MAPS >65. SBP IN THE 150S. PATIENT DENIES CHEST PAIN OR DISCOMFORT. PATIENT REPORTS FATIGUE FROM LACK OF SLEEP AT HOME. PATIENT DENIES NAUSEA. TOLERATING PO INTAKE WITHOUT DIFFICULTY. REPORTS USE OF CANE/WALKER AT TIMES AT HOME. REPORTS UNDERSTANDING OF CALLING FOR OOB ACTIVITY. PUREWICK IN PLACE.
[2023-07-26] MEDS ORDERED: LORA10ER PO (15:13)
[2023-07-26] MEDS ORDERED: MethylPREDNISolone Sod Succ 125 MG Vial IV SCH (16:00)
[2023-07-26 16:05] VITALS: BP 148/83
[2023-07-26] MEDS ORDERED: Albuterol 2.5 MG/3 ML VIAL INH PRN (16:20)
--- NOTE | 2023-07-26 17:30 | NUR ---
"Spiritual Care | Pt. request Pt. is awake in bed when she welcomes my visit and invites me to grab a chair and visit for awhile. The Pt. is known to this visual education teacher form previous hospital visits. Faciliate a life review and conside matters of the needs of her famiily. Pt. verbalized that she felt the combination of allergians and having painted her bathroom had an impact of her hospitalization. Considered matters of mari and beleif as part of our visit. Pt. displayed evidence of a clear mind and keen awareness. Prayed with the Pt. Pt. verbalized gratitude for the spiritual care visit and welcomed this visual education teacher to return."
--- NOTE | 2023-07-26 18:35 | NUR ---
SHIFT SUMMARY: NEURO: PATIENT ALERT AND ORIENTED X4. PATIENT FOLLOWING DIRECTIONS AND ANSWERING QUESTIONS APPROPRIATELY. 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 PATIENT REPORTS OCCASIONAL USE OF CANE OR WALKER AT HOME. UNDERSTANDS NEED FOR STAFF ASSISTANCE AT THIS TIME. PATIENT DENIES PAIN. CARDIAC: PATIENT DENIES CHEST PAIN OR DISCOMFORT. VITALS STABLE WITH MAPS >65. HR IN THE 70-80S. NORMAL SINUS WITH OCCASIONAL PVCS. RESPIRATORY: PATIENT ARRIVED TO THE UNIT ON 6L VIA OXYMIZER. NO SHORTNESS OF BREATH OR RESPIRATORY DISTRESS NOTED. QUICKLY ABLE TO TITRATE PATIENT DOWN TO 2L O2 VIA OXYMIZER. SPO2 >95%. PATIENT CONTINUED TO DENY SHORTNESS OF BREATH. BIPAP AT BEDSIDE. PATIENT AGREES TO USE THIS WITH SLEEP OR NEEDED. GI/: PATIENT DENIES NAUSEA. TOLERATING PO INTAKE WITHOUT DIFFICULTY. PUREWICK IN PLACE. URINE IS A LIGHT, CLEAR YELLOW. PSYCHSOCIAL: PATIENT CALM AND COOPERATIVE. PATIENT REPORTS GOOD SUPPORT FROM HER SON AND SIGNIFICANT OTHER (WHO SHE LIVES WITH).
[2023-07-26 19:33] VITALS: BP 158/77
[2023-07-26] MEDS ORDERED: Docusate Sodium/Senna 1 Tab PO SCH (21:00)
[2023-07-26] MEDS ORDERED: Insulin Glargine-Yfgn 100 Unit/mL 3 ML SYR SC SCH (21:10)
--- NOTE | 2023-07-26 22:35 | NUR ---
ASSUMPTION OF CARE Pt resting in bed, oriented x4, on 2L per oxymizer, reports improvement in her respiratory status. Monitor shows sinus rhythm in the 80's, stable BP. Pt agreeable to plan for bipap tonight. Pt tolerating PO intake, evening CBG 400, pt reports taking long acting and sliding scale at night, unsure of doses. Records indicate either 45u or 60u long acting insulin in the evening, discussed with Dr Mcfarlane, order for 45u long acting insulin at bedtime ordered, discussed with pt that doses could be adjusted in accordance with her CBG's and will be re-evaluated tomorrow. Pt agreeable to this. Pt ambulatory with SBA using FWW to restroom, purewick in place.
[2023-07-26 23:37] VITALS: BP 137/72
--- NOTE | 2023-07-26 23:51 | NUR ---
WHILE PRIMARY RN ON BREAK, THIS RN OBTAINED VS AND ADMINISTERED SCHEDULED IV SOLUMEDROL AND PRN PO TYLENOL FOR 3/10 CHRONIC R KNEE PAIN.
[2023-07-27 03:44] VITALS: BP 91/65
[2023-07-27 04:31] VITALS: BP 96/77
--- NOTE | 2023-07-27 04:33 | NUR ---
Pt requesting break from Bipap, removed at this time. Spo2 maintaining above 92% on room air.
[2023-07-27 05:26] LABS: Base Excess Venous -4.5 mmol/L; Bicarbonate Venous 21.3 mmol/L (24.0-30.0); PCO2 Venous 31.3 mmHg (38-42); pH Blood Venous 7.42 (7.34-7.37)
[2023-07-27 06:14] LABS: Bun/Creatinine Ratio 27.1 (12.0-20.0); Calcium, Blood 10.3 mg/dL (8.5-10.1); Creatinine, Blood 1.18 mg/dL (0.40-1.00); Potassium, Blood 4.1 mmol/L (3.5-5.5)
--- NOTE | 2023-07-27 06:14 | NUR ---
SHIFT SUMMARY Pt rested well this shift, remains oriented x4. Pt tolerated Bipap for approx 5 hours last night, repeat VBG drawn this AM. Pt Spo2 maintaining above 92% while awake this AM. Monitor shows sinus rhythm with HR 80's, blood pressure decreased but with adequate MAP this AM while on BiPAP. Pt tolerating PO intake, denies GI/ issues, ambulates with SBA with FWW.
[2023-07-27 07:36] VITALS: BP 138/74
[2023-07-27] MEDS ORDERED: Cholecalciferol 1000 Unit Tablet (=25MCG) PO SCH (09:00)
[2023-07-27] MEDS ORDERED: Furosemide 10 MG/ML 4ML Vial IV SCH (09:00)
[2023-07-27] MEDS ORDERED: Enoxaparin 40 MG/0.4 ML SYR SC SCH (09:00)
[2023-07-27 11:28] VITALS: BP 161/80
[2023-07-27] MEDS ORDERED: Insulin Glargine-Yfgn 100 Unit/mL 3 ML SYR SC ONE (13:00)
[2023-07-27 15:31] VITALS: BP 103/78
[2023-07-27] MEDS ORDERED: Insulin Human Lispro 100 Units/ML 3ML Syringe SC SCH (16:30)
--- NOTE | 2023-07-27 16:49 | NUR ---
1645- RECEIVED REPORT FROM JOHNNA LUNA FROM [facility].
--- NOTE | 2023-07-27 17:41 | NUR ---
TRANSFER NOTE NO ACUTE CHANGES THIS SHIFT. PT A&OX4. SP02>90% ON RA-2L. TELEMETRY SHOWS NSR, HR MOSTLY 80'S-90'S. 6 BEAT RUNS OF MD SUSANNE NOTIFIED. UP TO BSC TO VOID. CBG ELEVATED, ONE TIME LANTUS DOSE GIVEN TO MATCH HOME DOSE. NIGHT LANTUS DOSE INCREASED TO MATCH HOME DOSE. POL FILLED OUT W/ MD THIS SHIFT, SEE CHART. PT TRANSFERRED TO MEDICAL FLOOR ROOM 358.
--- NOTE | 2023-07-27 18:01 | NUR ---
TRANSFER- PT TO MEDICAL FLOOR AT 1715. NO COMPLAINTS. PT STABLE ON RA.
[2023-07-27 19:24] VITALS: BP 176/94
[2023-07-27] MEDS ORDERED: Losartan Potassium 25 MG Tab PO ONE (19:50)
[2023-07-27] MEDS ORDERED: Insulin Glargine-Yfgn 100 Unit/mL 3 ML SYR SC SCH (21:00)
[2023-07-27] MEDS ORDERED: MethylPREDNISolone Sod Succ 125 MG Vial IV SCH (21:00)
[2023-07-28 03:50] VITALS: BP 150/84
--- NOTE | 2023-07-28 05:15 | NUR ---
SHIFT SUMMARY. PATIENT A&OX4. PATIENT CALLS APPROPRIATELY AND IS ABLE TO MAKE HER NEEDS KNOWN. PATIENT EXPERIENCED SOB WITH EXERTION THIS SHIFT. PATIENT USED 2L'S O2 VIA NASAL CANNULA FOR 2-3 MINUTES TO RECOVER-PATIENT HAS NOT NEEDED FURTHER OXYGEN TONIGHT. PATIENT AMBULATING TO BSC W/ SBA AND FWW. PATIENT RESTED WELL THIS EVENING, SATTING >93% ON RA. BED IS LOCKED IN THE LOWEST POSITION WITH CALL LIGHT IN REACH. CARE IS ONGOING.
[2023-07-28 05:29] LABS: Bun/Creatinine Ratio 41.7 (12.0-20.0); Calcium, Blood 10.5 mg/dL (8.5-10.1); Creatinine, Blood 1.08 mg/dL (0.40-1.00); Magnesium, Blood 1.7 mg/dL (1.6-2.4); Potassium, Blood 3.8 mmol/L (3.5-5.5)
[2023-07-28 05:30] LABS: BASOPHILS ABSOLUTE AUTO 0.02 K/mm3 (0.00-0.23); BASOPHILS PERCENT AUTO 0 % (0-2); EOSINOPHILS ABSOLUTE AUTO 0.01 K/mm3 (0.00-0.68); EOSINOPHILS PERCENT AUTO 0 % (0-6); Hematocrit 33.3 % (33.0-51.0); Hemoglobin 11.5 g/dL (11.5-16.0); IMMATURE GRAN ABSOLUTE AUTO 0.17 K/mm3 (0.00-0.10); IMMATURE GRAN PERCENT AUTO 1 % (0-1); LYMPHOCYTES ABSOLUTE AUTO 1.64 K/mm3 (0.84-5.20); LYMPHOCYTES PERCENT AUTO 9 % (21-46); MONOCYTES ABSOLUTE AUTO 0.48 K/mm3 (0.16-1.47); MONOCYTES PERCENT AUTO 3 % (4-13); Mean Corpuscular HGB Conc 34.5 g/dL (31.5-36.5); Mean Corpuscular Volume 93 fL (80-100); Mean Platelet Volume 10.4 fL (9.1-12.4); NEUTROPHILS ABSOLUTE AUTO 16.26 K/mm3 (1.96-9.15); NEUTROPHILS PERCENT AUTO 88 % (41-73); Platelet Count 350 K/mm3 (150-400); RDW Coefficient Variation 14.1 % (11.7-14.2); RDW Standard Deviation 47.5 fL (35.1-46.3); Red Blood Cell Count 3.59 M/mm3 (3.80-5.20); White Blood Cell Count 18.58 K/mm3 (4.00-11.30)
[2023-07-28 07:18] VITALS: BP 136/94
[2023-07-28] MEDS ORDERED: Potassium Chloride 20 MEQ TabCR PO SCH (08:00)
[2023-07-28] MEDS ORDERED: Empagliflozin 10 MG TAB PO SCH (08:00)
[2023-07-28] MEDS ORDERED: Mag Sulfate 1 GM/D5% 100ML 100 ML IV STA (08:03)
[2023-07-28] MEDS ORDERED: NS 250 ML IV PRN (08:40)
[2023-07-28] MEDS ORDERED: Losartan Potassium 25 MG Tab PO SCH (09:00)
[2023-07-28 15:37] VITALS: BP 141/76
--- NOTE | 2023-07-28 17:45 | NUR ---
SHIFT SUMMARY PT A&OX4, VSS, AMB IND, TOLERATING PO, VOIDING, AND DENIED PAIN. TELE NOTIFIED THIS NURSE OF PT IN V TACH FOR 5 BEATS. PT ASYMPTOMATIC. NO OTHER ACUTE CHANGES. PLAN FOR POSSIBLE DISCHARGE TOMORROW. CALL LIGHT WITHIN REACH AND PT ABLE TO MAKE NEEDS KNOWN.
[2023-07-28] MEDS ORDERED: Metoprolol Succinate 25 MG TABCR PO SCH (18:00)
[2023-07-28 19:22] VITALS: BP 138/71
[2023-07-29 04:39] VITALS: BP 113/71
--- NOTE | 2023-07-29 04:46 | NUR ---
SHIFT SUMMARY. PATIENT IS A&OX4. PATIENT IS PLEASANT AND COOPERATIVE WITH CALL. PATIENT ABLE TO MAKE HER NEEDS KNOWN. PATIENT HAD SHOWER THIS SHIFT. PATIENT HAS TELE ON WITH LEADS IN PLACE. PATIENT IS SBA TO THE BSC WITH FWW. NO ACUTE CHANGED. BED IS LOCKED IN THE LOWEST POSITION WITH CALL LIGHT IN REACH. CARE IS ONGOING.
[2023-07-29 04:51] LABS: BASOPHILS ABSOLUTE AUTO 0.02 K/mm3 (0.00-0.23); BASOPHILS PERCENT AUTO 0 % (0-2); EOSINOPHILS ABSOLUTE AUTO 0.04 K/mm3 (0.00-0.68); EOSINOPHILS PERCENT AUTO 0 % (0-6); Hemoglobin 12.2 g/dL (11.5-16.0); IMMATURE GRAN ABSOLUTE AUTO 0.13 K/mm3 (0.00-0.10); IMMATURE GRAN PERCENT AUTO 1 % (0-1); LYMPHOCYTES ABSOLUTE AUTO 4.14 K/mm3 (0.84-5.20); LYMPHOCYTES PERCENT AUTO 23 % (21-46); MONOCYTES ABSOLUTE AUTO 1.19 K/mm3 (0.16-1.47); MONOCYTES PERCENT AUTO 7 % (4-13); Mean Corpuscular HGB 31.9 pg (26.0-34.0); Mean Corpuscular HGB Conc 33.9 g/dL (31.5-36.5); Mean Corpuscular Volume 94 fL (80-100); NEUTROPHILS PERCENT AUTO 69 % (41-73); Platelet Count 353 K/mm3 (150-400); RDW Coefficient Variation 14.3 % (11.7-14.2); RDW Standard Deviation 47.7 fL (35.1-46.3); Red Blood Cell Count 3.82 M/mm3 (3.80-5.20); White Blood Cell Count 18.02 K/mm3 (4.00-11.30)
[2023-07-29 05:32] LABS: Bun/Creatinine Ratio 43.7 (12.0-20.0); Calcium, Blood 10.4 mg/dL (8.5-10.1); Creatinine, Blood 1.26 mg/dL (0.40-1.00); Potassium, Blood 3.8 mmol/L (3.5-5.5)
[2023-07-29 07:10] VITALS: BP 93/63
[2023-07-29] MEDS ORDERED: Potassium Chloride 20 MEQ TabCR PO SCH (09:00)
[2023-07-29] MEDS ORDERED: Furosemide 20 MG Tab PO SCH (09:00)
[2023-07-29] MEDS ORDERED: PredniSONE 20 MG Tab PO SCH (09:00)
[2023-07-29 09:01] VITALS: BP 129/56
[2023-07-29] MEDS ORDERED: JARDIANCE10 MG PO (09:39)
[2023-07-29] MEDS ORDERED: FURO20 PO (09:40)
[2023-07-29] MEDS ORDERED: METO25ER PO (09:40)
[2023-07-29] MEDS ORDERED: POTA10T PO (09:41)
[2023-07-29] MEDS ORDERED: ALBU90OI INH (09:42)
[2023-07-29] MEDS ORDERED: PRED20 PO (09:44)
--- NOTE | 2023-07-29 13:35 | NUR ---
DISCHARGE NOTE PT DISCHARGED HOME AT APPROX 10:45. PT PROVIDED W/ VERBAL AND WRITTEN INSTRUCTIONS REPORTED UNDERSTANDING. PT A&OX4, VSS, AMB IND, TOLERATING PO, VOIDING, AND DENIED PAIN. BELONINGS WERE RETURNED AND PT ESCOURTED OUT VIA W/C AT 13:30 BY RUSSELL MELO.
== END 2023-07-29 13:35 | disposition home or self-care (01) | DRG 291 ==
LOC: ER 07:35 → PCU 11:00 → MEDS 07-27 17:31 → ENPENDDIS 07-29 10:03 → MEDS 07-29 13:35
PROVIDERS: Internal Medicine; Student in an Organized Health Care Education/Training Program; ADMIT Internal Medicine
PROC: 5A09357 Assistance with Respiratory Ventilation, Less than 24 Consecutive Hours, Continuous Positive Airway Pressure (ICD-10-PCS; principal; 2023-07-26)
DX: I11.0 Hypertensive heart disease with heart failure (principal); I50.43 Acute on chronic combined systolic (congestive) and diastolic (congestive) heart failure; J96.01 Acute respiratory failure with hypoxia; J96.02 Acute respiratory failure with hypercapnia; J45.901 Unspecified asthma with (acute) exacerbation; E11.9 Type 2 diabetes mellitus without complications; G25.81 Restless legs syndrome; K59.00 Constipation, unspecified; F32.A Depression, unspecified; I25.10 Atherosclerotic heart disease of native coronary artery without angina pectoris; Z95.5 Presence of coronary angioplasty implant and graft; Z88.5 Allergy status to narcotic agent; Z88.1 Allergy status to other antibiotic agents; Z88.8 Allergy status to other drugs, medicaments and biological substances; Z79.899 Other long term (current) drug therapy; Z79.4 Long term (current) use of insulin
CPT/HCPCS: 36415; 71045; 80048; 80053; 82803; 82947; 83735; 83880; 84145; 84484; 85025; 93005; 93010; 93306; 94644; 94660; 94664; 94760; 94762; 96374-59; 99285-25; A9270; J1650; J1815; J1940; J2919; J3475; J7050; J7512

== ENCOUNTER 2023-08-23 03:31 | Inpatient (IN) | payer OTHER ==
[~2023-08-23] VITALS: Ht 167.6 cm; Wt 81.3 kg
[~2023-08-23 03:31] MED LIST changes: +ACET500 PO; +FURO20 PO; +JARDIANCE10 MG PO; +LORA10ER PO; +METO25ER PO; +NOVOLOG FL100 UNIT/3 SC; +POTA10T PO; +PRED20 PO
[2023-08-23] MEDS ORDERED: Midazolam HCl 1MG / ML 2ML Vial IV ONE (03:45)
[2023-08-23 04:16] LABS: BASOPHILS ABSOLUTE AUTO 0.06 K/mm3 (0.00-0.23); BASOPHILS PERCENT AUTO 1 % (0-2); EOSINOPHILS ABSOLUTE AUTO 0.54 K/mm3 (0.00-0.68); EOSINOPHILS PERCENT AUTO 6 % (0-6); Hematocrit 31.7 % (33.0-51.0); Hemoglobin 10.2 g/dL (11.5-16.0); IMMATURE GRAN ABSOLUTE AUTO 0.03 K/mm3 (0.00-0.10); IMMATURE GRAN PERCENT AUTO 0 % (0-1); LYMPHOCYTES ABSOLUTE AUTO 3.56 K/mm3 (0.84-5.20); LYMPHOCYTES PERCENT AUTO 40 % (21-46); MONOCYTES ABSOLUTE AUTO 0.31 K/mm3 (0.16-1.47); MONOCYTES PERCENT AUTO 4 % (4-13); Mean Corpuscular HGB 31.5 pg (26.0-34.0); Mean Corpuscular HGB Conc 32.2 g/dL (31.5-36.5); Mean Corpuscular Volume 98 fL (80-100); Mean Platelet Volume 9.4 fL (9.1-12.4); NEUTROPHILS ABSOLUTE AUTO 4.36 K/mm3 (1.96-9.15); NEUTROPHILS PERCENT AUTO 49 % (41-73); Platelet Count 418 K/mm3 (150-400); RDW Coefficient Variation 14.1 % (11.7-14.2); RDW Standard Deviation 50.7 fL (35.1-46.3); Red Blood Cell Count 3.24 M/mm3 (3.80-5.20); White Blood Cell Count 8.86 K/mm3 (4.00-11.30)
[2023-08-23 04:20] LABS: Base Excess Venous -9.1 mmol/L; Bicarbonate Venous 17.7 mmol/L (24.0-30.0); PCO2 Venous 35.6 mmHg (38-42)
[2023-08-23 04:36] LABS: Albumin, Blood 3.1 g/dL (3.4-5.0); Albumin/Globulin Ratio 0.9 (0.8-1.8); Bilirubin, Total 0.3 mg/dL (0.1-1.0); Bun/Creatinine Ratio 16.3 (12.0-20.0); Calcium, Blood 9.7 mg/dL (8.5-10.1); Creatinine, Blood 1.35 mg/dL (0.40-1.00); Globulin, Blood 3.6 g/dL (2.2-4.0); Magnesium, Blood 1.9 mg/dL (1.6-2.4); Phosphorus, Blood 4.9 mg/dL (2.5-4.9); Potassium, Blood 3.7 mmol/L (3.5-5.5); Total Protein, Blood 6.7 g/dL (6.4-8.2)
[2023-08-23 04:41] LABS: D-Dimer, Quantitative 4.48 mg/L FEU (0.00-0.52); International Normalized Ratio 0.97; Prothrombin Time Results 10.4 Sec (9.7-11.5)
[2023-08-23] MEDS ORDERED: LevoFLOXacin 750 MG/D5W 150ML 150 ML IV ONE (04:55)
[2023-08-23] MEDS ORDERED: Albuterol 2.5 MG/3 ML VIAL INH PRN (06:55)
[2023-08-23] MEDS ORDERED: NS 1,000 ML IV SCH (06:55)
[2023-08-23] MEDS ORDERED: Ipratropium/Albuterol SulF 2.5-0.5MG/3 ML Amp INH SCH (06:55)
[2023-08-23] MEDS ORDERED: NS 1,000 ML IV ONE (07:14)
[2023-08-23] MEDS ORDERED: Budesonide 1 MG/2 ML RESP INH SCH (07:20)
[2023-08-23] MEDS ORDERED: Docusate Sodium/Senna 1 Tab PO PRN (07:20)
[2023-08-23] MEDS ORDERED: Acetaminophen 325 MG TABLET PO PRN ×2 (07:25→10:50)
[2023-08-23] MEDS ORDERED: Zolpidem Tartrate 5 MG Tab PO PRN (07:25)
[2023-08-23] MEDS ORDERED: Insulin Human Lispro 100 Units/ML 3ML Syringe SC SCH (07:30)
[2023-08-23 08:00] VITALS: BP 80/44
[2023-08-23] MEDS ORDERED: MethylPREDNISolone Sod Succ 125 MG Vial IV SCH (08:00)
[2023-08-23 08:05] LABS: PCO2 Venous 42.1 mmHg (38-42); pH Blood Venous 7.28 (7.34-7.37)
[2023-08-23 08:06] LABS: Base Excess Venous -6.9 mmol/L; Bicarbonate Venous 18.9 mmol/L (24.0-30.0)
[2023-08-23] MEDS ORDERED: Heparin Sodium 5000 Units/ML 1ML MDV IV ONE (08:45)
[2023-08-23] MEDS ORDERED: Heparin Sodium,Porcine/0.5 NS 500 ML IV SCH (08:45)
[2023-08-23 09:00] VITALS: BP 95/80
[2023-08-23] MEDS ORDERED: Furosemide 10 MG / ML 2ML Vial IV SCH (09:00)
[2023-08-23] MEDS ORDERED: Citalopram Hydrobromide 20 MG Tab PO SCH (09:00)
[2023-08-23] MEDS ORDERED: Loratadine 10 MG Tab PO SCH (09:00)
--- NOTE | 2023-08-23 09:00 | NUR ---
Patient arrived via [facility] post telephone report. She was alert and oriented and able to communnicate her needs. She was on 6L via NC and sats >90%. She has IV 20ga LFA and 18ga LH and was infusing NS and talked with Dr Londono and had her stop fluids. She has purewick in place to suction. CBG was 315 and no coverage as she is NPO. New linen and gown placed. Started heparing GTT for PE at 15 units/kg/hr at rate 20.7 ML and adjuste weight 69 kg verified by Nesha pedro.
[2023-08-23 09:03] LABS: Adenovirus Not Detected (NOT DETECT); Coronavirus 229E Not Detected (NOT DETECT)
[2023-08-23 09:04] LABS: Bordetella pertussis Not Detected (NOT DETECT); Chlamydophila pneumoniae Not Detected (NOT DETECT); Coronavirus HKU1 Not Detected (NOT DETECT); Coronavirus NL63 Not Detected (NOT DETECT); Coronavirus OC43 Not Detected (NOT DETECT); Human Metapneumovirus Not Detected (NOT DETECT); Human Rhinovirus/Enterovirus Not Detected (NOT DETECT); Influenza A/2009-H1 Not Detected (NOT DETECT); Influenza A/H1 Not Detected (NOT DETECT); Influenza A/H3 Not Detected (NOT DETECT); Influenza B Not Detected (NOT DETECT); Mycoplasma pneumoniae Not Detected (NOT DETECT); Parainfluenza Virus 1 Not Detected (NOT DETECT); Parainfluenza Virus 2 Not Detected (NOT DETECT); Parainfluenza Virus 3 Not Detected (NOT DETECT); Parainfluenza Virus 4 Not Detected (NOT DETECT); Respiratory Syncytial Virus Not Detected (NOT DETECT); SARS-Cov-2 (COVID-19), BioFire Not Detected (NOT DETECT)
[2023-08-23 10:00] VITALS: BP 131/83
[2023-08-23 11:01] VITALS: BP 148/124
--- NOTE | 2023-08-23 12:02 | NUR ---
No changes with patient. She remains pleasant and cooperative with care. She continues on 6L Via NC and sats >90%. She is started on ice chips and advancec to consistent carb and tolerated well. CBG is 345 and coverage needed now that she is eating. New orders from DR Londono. Dilcia remains to suction.
[2023-08-23] MEDS ORDERED: Lidocaine 5% Ointment 35 gm TOP SCH (14:00)
[2023-08-23] MEDS ORDERED: Lidocaine HCl 4% Cream 5 GM TOP SCH (14:00)
--- NOTE | 2023-08-23 14:04 | NUR ---
Patient incontinent to urine and changed bed and linen and gave bath. She is resting comfortable in bed. She remains alert and cooperative with care and on 6L O2 via NC and sats >90%. She tolerated luch well and no signs of aspiration. Call appropriately.
[2023-08-23] MEDS ORDERED: Saline Nasal Spray 45 ML PRN (15:30)
[2023-08-23] MEDS ORDERED: Metoprolol Tartrate 25 MG Tab PO SCH (16:00)
[2023-08-23] MEDS ORDERED: Dose Adjust by Pharmacy XX STA (16:27)
--- NOTE | 2023-08-23 17:51 | NUR ---
Patient has been resting with c/o pain right knee and neck and has been medicated. Pharmacy made heparin change to 16 units/kg/hr. RT has reduced O2 to RA and she is tolerating well and sats >90%. Rubbed lido gel on right knee. Ordered nasal saline for dry nasal passages. She is sitting up tolerating dinner well. her purewick remains in place with good output of almost a liter. She is a very pleasant patient and is fun with her care. She has echo ordered for tomorrow.
[2023-08-23 19:34] VITALS: BP 102/92
[2023-08-23] MEDS ORDERED: Pramipexole DI-HCL 0.125 MG Tab PO SCH (21:00)
[2023-08-23 23:06] VITALS: BP 106/65
[2023-08-24 03:00] VITALS: BP 122/79
[2023-08-24] MEDS ORDERED: Vancomycin HCL 1,750 MG in NS 500 ML IV ONE (04:30)
[2023-08-24 05:14] LABS: Hematocrit 27.1 % (33.0-51.0); Mean Corpuscular HGB Conc 33.2 g/dL (31.5-36.5); Mean Corpuscular Volume 96 fL (80-100); Mean Platelet Volume 9.9 fL (9.1-12.4); Platelet Count 371 K/mm3 (150-400); RDW Coefficient Variation 14.4 % (11.7-14.2); RDW Standard Deviation 51.2 fL (35.1-46.3); Red Blood Cell Count 2.81 M/mm3 (3.80-5.20); White Blood Cell Count 14.89 K/mm3 (4.00-11.30)
[2023-08-24 06:00] LABS: Anion Gap 12 mmol/L (3-11); Blood Urea Nitrogen 31 mg/dL (8-24); Bun/Creatinine Ratio 19.9 (12.0-20.0); CHOL/HDL RATIO 3.2; CO2, Blood 20 mmol/L (21-32); Calcium, Blood 10.2 mg/dL (8.5-10.1); Chloride, Blood 111 mmol/L (98-108); Cholesterol 209 mg/dL (50-200); Creatinine, Blood 1.56 mg/dL (0.40-1.00); Glomerular Filtration Rate 34 (60-); Glucose, Blood 323 mg/dL (70-99); HDL Cholesterol 65 mg/dL (>39); Low Density Lipoprotein Chol 127 mg/dL (0-110); Magnesium, Blood 1.2 mg/dL (1.6-2.4); Phosphorus, Blood 2.9 mg/dL (2.5-4.9); Sodium, Blood 139 mmol/L (136-145); Triglycerides 84 mg/dL (30-160); Very Low Density Lipoprot Chol 16 mg/dL (6-32)
[2023-08-24 08:09] VITALS: BP 137/104
--- NOTE | 2023-08-24 08:15 | NUR ---
AM ASSESSMENT: Pt sitting up in bed. A/O x4 but has mumbled speech. LS diminished. HR tachycardic but shows Sinus Rhythm. BT positive. Pt denies pain but states that she sometimes has pain in her back and knees. Denies Chest pain or SOB at this time. Pt currently on 2L per N/C with biox around 92-96. Heparin gtt. running. Call light in reach. Will continue to monitor.
[2023-08-24] MEDS ORDERED: Enoxaparin 40 MG/0.4 ML SYR SC SCH (09:00)
[2023-08-24] MEDS ORDERED: Mag Sulfate 1 GM/D5% 100ML 100 ML IV STA (09:02)
[2023-08-24 09:55] LABS: Base Excess Venous -5.9 mmol/L; Bicarbonate Venous 19.9 mmol/L (24.0-30.0); PCO2 Venous 31.8 mmHg (38-42); pH Blood Venous 7.39 (7.34-7.37)
[2023-08-24 11:41] VITALS: BP 120/83
[2023-08-24 15:45] VITALS: BP 125/79
--- NOTE | 2023-08-24 17:09 | NUR ---
SHIFT SUMMARY: Pt sitting up in bed getting ready for dinner. Pt has done well today, states that she is feeling better. Pt has remained on 2L per NC throughout the day. As she dozed her biox would decrease to low 90's. While awake biox 93-97% on 2L. Pt was able to get up to chair with one person SBA and stayed up in chair for a few hours. Pt had echo today. Heparin gtt running throughout shift per orders. VSS throughout shift. Stable at end of shift. Will report to night RN.
[2023-08-24 19:38] VITALS: BP 108/56
[2023-08-24] MEDS ORDERED: Insulin Glargine-Yfgn 100 Unit/mL 3 ML SYR SC SCH (21:00)
[2023-08-24] MEDS ORDERED: Sacubitril/Valsartan 49 MG/51 MG Tab PO SCH (21:00)
[2023-08-24 23:06] VITALS: BP 112/65
[2023-08-25] VITALS (15 sets, daily range): BP systolic 79–126; BP diastolic 55–85
[2023-08-25 01:17] LABS: BASOPHILS ABSOLUTE AUTO 0.02 K/mm3 (0.00-0.23); BASOPHILS PERCENT AUTO 0 % (0-2); EOSINOPHILS PERCENT AUTO 0 % (0-6); Hematocrit 26.9 % (33.0-51.0); Hemoglobin 8.9 g/dL (11.5-16.0); IMMATURE GRAN ABSOLUTE AUTO 0.13 K/mm3 (0.00-0.10); IMMATURE GRAN PERCENT AUTO 1 % (0-1); LYMPHOCYTES ABSOLUTE AUTO 1.16 K/mm3 (0.84-5.20); LYMPHOCYTES PERCENT AUTO 7 % (21-46); MONOCYTES ABSOLUTE AUTO 0.71 K/mm3 (0.16-1.47); MONOCYTES PERCENT AUTO 4 % (4-13); Mean Corpuscular HGB 31.9 pg (26.0-34.0); Mean Corpuscular HGB Conc 33.1 g/dL (31.5-36.5); Mean Corpuscular Volume 96 fL (80-100); Mean Platelet Volume 10.1 fL (9.1-12.4); NEUTROPHILS ABSOLUTE AUTO 14.53 K/mm3 (1.96-9.15); NEUTROPHILS PERCENT AUTO 88 % (41-73); Platelet Count 374 K/mm3 (150-400); RDW Coefficient Variation 14.6 % (11.7-14.2); RDW Standard Deviation 50.8 fL (35.1-46.3); Red Blood Cell Count 2.79 M/mm3 (3.80-5.20); White Blood Cell Count 16.55 K/mm3 (4.00-11.30)
[2023-08-25 01:44] LABS: Albumin, Blood 3.2 g/dL (3.4-5.0); Anion Gap 13 mmol/L (3-11); Blood Urea Nitrogen 40 mg/dL (8-24); Bun/Creatinine Ratio 26.1 (12.0-20.0); CO2, Blood 21 mmol/L (21-32); Calcium, Blood 10.3 mg/dL (8.5-10.1); Chloride, Blood 110 mmol/L (98-108); Creatinine, Blood 1.53 mg/dL (0.40-1.00); Glomerular Filtration Rate 35 (60-); Glucose, Blood 342 mg/dL (70-99); Magnesium, Blood 1.9 mg/dL (1.6-2.4); Phosphorus, Blood 2.7 mg/dL (2.5-4.9); Potassium, Blood 3.7 mmol/L (3.5-5.5); Sodium, Blood 140 mmol/L (136-145)
[2023-08-25] MEDS ORDERED: Clarify Drug Order XX ONE (01:55)
--- NOTE | 2023-08-25 04:53 | NUR ---
SHIFT SUMMARY ASSUMED CARE OF PATIENT AT 1900. PATIENT ALERT AND ORIENTED, COOPERATIVE WITH CARES. GARBLED SPEECH. TOLERATING 2-3L O2 VIA NC TONIGHT, DESATS TO 80'S WITH EXERTION. TACHYCARDIC HR 100'S. BP STABLE. AFEBRILE. PATIENT DENIES SOB, CHEST PAIN, OR CHEST PRESSURE OVERNIGHT. BREATHING TX'S PER RT. HEPARIN GTT INFUSING, DOSING PER PHARMACY. NO ACUTE EVENTS OVERNIGHT.
[2023-08-25] MEDS ORDERED: Vancomycin HCL 1,250 MG in NS 250 ML IV SCH (05:00)
--- NOTE | 2023-08-25 08:58 | NUR ---
I CALLED DR. MCCLURE ABOUT THE PT'S HYPOTENSION AND HOLDING ENTRESTO, METOPROLOL, AND LASIX. DR. MCCLURE STATED TO KEEP AN EYE ON THE BLOOD PRESSURE AND CALL IF MAP <60.
[2023-08-25] MEDS ORDERED: Ezetimibe 10 MG Tab PO SCH (09:00)
[2023-08-25] MEDS ORDERED: Metoprolol Succinate 50 MG TABCR PO SCH (09:00)
[2023-08-25] MEDS ORDERED: Dose Adjust by Pharmacy XX STA ×2 (15:46→23:10)
--- NOTE | 2023-08-25 17:16 | NUR ---
SHIFT SUMMARY THE PT IS A&OX4, CALLS APPROPRAITELY. SHE IS A 1P STANDBY ASSIST UP TO THE CHAIR OR BSC. I DID HAVE THE PT BEDREST FOR A FEW HOURS TODAY WHILE HER BLOOD PRESSURE WAS LOW. WHEN HER BLOOD PRESSURE WAS LOW SHE HAS SLIGHT DIZZINESS. BP SLIGHTLY IMPROVED W/O PHARMACEUTICAL INTERVENTION. ON TELE SHE HAS BEEN SR/ST 90'S-100'S. SHE HAS BEEN ON RA THE ENTIRE SHIFT AND SP02 >92%. THE PT STATES THAT SHE CAN GET SOB WITH ACTIVITY. A PURWICK WAS SET UP TO MINIMIZE GETTING UP TO THE BSC BECAUSE OF HYPOTENSION. PURWICK IS STILL IN PLACE PER PT REQUEST. SHE REMAINS ON A HEP GTT THAT IS BEIING MONITORED BY PHARMACY. SEE NOTES FOR ANY UPDATES.
[2023-08-25] MEDS ORDERED: Insulin Glargine-Yfgn 100 Unit/mL 3 ML SYR SC SCH (21:00)
[2023-08-26] VITALS (9 sets, daily range): BP systolic 99–129; BP diastolic 62–75
--- NOTE | 2023-08-26 05:45 | NUR ---
SHIFT SUMMARY PT A&O X4, ALTHOUGH SOME MILD FORGETFULNESS NOTED OCCASSIONALLY. PT PLEASANT AND COOPERATIVE WITH CARE. VSS; SBP 102 - 120, HRR SINUS WITH PVC'S IN 90 - 100'S, INCREASING TO 100 - 1TEENS WITH ACTIVITY. PT DENIES CP/PRESSURE, DIZZINESS, PALPITATIONS, N/V. PT DOES REPORT DYSPNEA ESPECIALLY WITH ACTIVITY. THIS RN NOTES WELL. PT REPORTS BEING "VERY TIRED AND SLEEPY" OTHERWISE DENIES CONCERNS. PT USING BSC WITH 1 PERSON ASSIST; PT WITH SOFT BM'S X3 THIS SHIFT. PUREWICK IN PLACE AND CHANGED THIS SHIFT. PT ABLE TO MAKE NEEDS KNOWN, CALL LIGHT IN REACH. WILL UPDATE ONCOMING RN
[2023-08-26 05:56] LABS: BASOPHILS ABSOLUTE AUTO 0.02 K/mm3 (0.00-0.23); BASOPHILS PERCENT AUTO 0 % (0-2); EOSINOPHILS ABSOLUTE AUTO 0.22 K/mm3 (0.00-0.68); EOSINOPHILS PERCENT AUTO 2 % (0-6); Hematocrit 27.5 % (33.0-51.0); Hemoglobin 9.1 g/dL (11.5-16.0); IMMATURE GRAN ABSOLUTE AUTO 0.26 K/mm3 (0.00-0.10); IMMATURE GRAN PERCENT AUTO 2 % (0-1); LYMPHOCYTES ABSOLUTE AUTO 3.86 K/mm3 (0.84-5.20); LYMPHOCYTES PERCENT AUTO 27 % (21-46); MONOCYTES ABSOLUTE AUTO 0.84 K/mm3 (0.16-1.47); MONOCYTES PERCENT AUTO 6 % (4-13); Mean Corpuscular HGB 31.8 pg (26.0-34.0); Mean Corpuscular HGB Conc 33.1 g/dL (31.5-36.5); Mean Corpuscular Volume 96 fL (80-100); NEUTROPHILS ABSOLUTE AUTO 9.28 K/mm3 (1.96-9.15); NEUTROPHILS PERCENT AUTO 64 % (41-73); NRBC ABSOLUTE 0.03 K/mm3 (0.00-0.02); NRBC Auto 0.2 /100 WBC (0.0-0.2); Platelet Count 377 K/mm3 (150-400); RDW Coefficient Variation 14.6 % (11.7-14.2); RDW Standard Deviation 51.2 fL (35.1-46.3); Red Blood Cell Count 2.86 M/mm3 (3.80-5.20); White Blood Cell Count 14.48 K/mm3 (4.00-11.30)
[2023-08-26 06:14] LABS: Bun/Creatinine Ratio 28.5 (12.0-20.0); Calcium, Blood 9.7 mg/dL (8.5-10.1); Creatinine, Blood 1.3 mg/dL (0.40-1.00); Potassium, Blood 4.1 mmol/L (3.5-5.5)
[2023-08-26] MEDS ORDERED: Dose Adjust by Pharmacy XX STA ×3 (06:27→19:54)
--- NOTE | 2023-08-26 09:55 | NUR ---
DR. QUINONEZ AND DR. MCCLURE AT BEDSIDE AND OPTED TO DO A STRESS TEST ON THE PT. ALSO, SHE IS NOW MEDICAL STATUS WITH TELE.
[2023-08-26] MEDS ORDERED: Aminophylline 250MG / 10ML 10 ML Vial ONE (12:06)
[2023-08-26] MEDS ORDERED: Regadenoson 0.4 MG/5 ML SYRINGE ONE (12:06)
--- NOTE | 2023-08-26 17:08 | NUR ---
SHIFT SUMMARY PT IS A&OX4, CALLS APPROPRIATELY, AND CAN MAKE HER NEEDS KNOWN. THE PT IS A 1P SBA FOR TX. ON TELE SHE IS SR AND HER BP REMAINS STABLE. SHE DENIES ANY ANGINA OR CHEST PRESSURE. SHE HAS BEEN ON RA THE ENTIRE SHIFT AND SP02>93%. THE PT HAD THE FIRST PART OF HER STRESS TEST TODAY AND WILL RECIEVE THE SECOND PART OF HER STRESS TEST 08/26. PT WILL BE NPO AT 0000 FOR THE TEST. THERE HAS BEEN NO ACUTE EVENTS THIS SHIFT. SEE NOTES FOR ANY UPDATES.
--- NOTE | 2023-08-26 20:25 | NUR ---
Assumed care of pt at 1900 Pt sitting up in bed, watching tv- alert and oriented at this time. Denies cp or sob at this time- sts she is very tired and ready for bed. Lungs clear t/o. Wearing 2l O2 via NC- O2 sats >95%. Pt on continous cardiac exercise specialist- NSR rate of 80-90s w/ occassional PVCs observed. BP stable. Pt has pure wick in place w/ good output. Using call light appropriately- plan of care continues.
[2023-08-27 00:06] VITALS: BP 127/73
[2023-08-27 04:20] VITALS: BP 135/89
[2023-08-27 04:28] LABS: BASOPHILS ABSOLUTE AUTO 0.04 K/mm3 (0.00-0.23); BASOPHILS PERCENT AUTO 0 % (0-2); EOSINOPHILS ABSOLUTE AUTO 0.69 K/mm3 (0.00-0.68); EOSINOPHILS PERCENT AUTO 5 % (0-6); Hematocrit 30.7 % (33.0-51.0); Hemoglobin 10.2 g/dL (11.5-16.0); Mean Corpuscular HGB 31.4 pg (26.0-34.0); Mean Corpuscular HGB Conc 33.2 g/dL (31.5-36.5); Mean Corpuscular Volume 95 fL (80-100); Mean Platelet Volume 9.6 fL (9.1-12.4); NRBC ABSOLUTE 0.04 K/mm3 (0.00-0.02); NRBC Auto 0.3 /100 WBC (0.0-0.2); Platelet Count 387 K/mm3 (150-400); RDW Coefficient Variation 14.6 % (11.7-14.2); RDW Standard Deviation 50.6 fL (35.1-46.3); Red Blood Cell Count 3.25 M/mm3 (3.80-5.20); White Blood Cell Count 12.81 K/mm3 (4.00-11.30)
[2023-08-27 04:33] LABS: IMMATURE GRAN ABSOLUTE AUTO 0.17 K/mm3 (0.00-0.10); IMMATURE GRAN PERCENT AUTO 1 % (0-1); LYMPHOCYTES ABSOLUTE AUTO 5.44 K/mm3 (0.84-5.20); LYMPHOCYTES PERCENT AUTO 43 % (21-46); MONOCYTES ABSOLUTE AUTO 0.72 K/mm3 (0.16-1.47); MONOCYTES PERCENT AUTO 6 % (4-13); NEUTROPHILS ABSOLUTE AUTO 5.75 K/mm3 (1.96-9.15); NEUTROPHILS PERCENT AUTO 45 % (41-73)
[2023-08-27] MEDS ORDERED: Clarify Drug Order XX ONE (04:45)
[2023-08-27 04:54] LABS: Bun/Creatinine Ratio 27.2 (12.0-20.0); Calcium, Blood 9.5 mg/dL (8.5-10.1); Creatinine, Blood 1.14 mg/dL (0.40-1.00); Potassium, Blood 3.9 mmol/L (3.5-5.5)
--- NOTE | 2023-08-27 05:41 | NUR ---
End of shift summary. No acute events overnight. PT alert/oriented. Expresses concern throughout shift regarding her boyfriend's well being, therapeutic communication provided. Pt remains on 2l o2 via nc, sats >94%. Pt has brief periods of desaturation to 80s during sleep that correct rapidly w/out intervention. Pt on it service continuity supervisor- rate of 77 observed, bp stable. Pt has pure wick in place w/ good output- replaced during this shift. Pt using call light appropriately. Plan of care ongoing.
[2023-08-27 07:35] VITALS: BP 142/72
[2023-08-27] MEDS ORDERED: Empagliflozin 10 MG TAB PO SCH (09:00)
[2023-08-27 11:15] VITALS: BP 90/59
--- NOTE | 2023-08-27 12:33 | NUR ---
DR. CANO AT BEDSIDE AND MADE AWARE OF SOFT BP. DR. CANO STATED THAT SHE WANTS TO BE NOTIFIED OF THE BP IF THE MAP <65.
[2023-08-27 15:20] VITALS: BP 121/66
[2023-08-27] MEDS ORDERED: Rosuvastatin Calcium 10 MG Tab PO SCH (16:00)
[2023-08-27] MEDS ORDERED: Atorvastatin 40 MG Tab PO SCH (16:00)
--- NOTE | 2023-08-27 17:11 | NUR ---
SHIFT SUMMARY PT IS A&OX4, BILL [employer], ABLE TO MAKE HER NEEDS KNOWN, AND SHE IS A 1P SBA FOR TX. D/T THE LASIX AND SOFT BLOOD PRESSURES THIS AFTERNOON THE PT USED HER PUWICK ABOUT HALF OF THE DAY. HER BP HAS IMPROVED. ON TELE SHE IS SR AND SHE DENIES ANY ANGINA OR CHEST PRESSURE. THE PT HAD THE SECOND PORTION OF HER STRESS TEST THIS MORNING. SHE WILL BE NPO AT 0000 FOR THE HEALTH AND NUTRITION SPECIALIST. THE PT REMAINS ON A HEP GTT BEING MANAGED BY PHARMACY. NO ACUTE EVENTS. SEE NOTES FOR ANY UPDATES.
--- NOTE | 2023-08-27 18:57 | NUR ---
CARDIOLOGY CALLED AND CHANGED THE PLAN FOR PCU14. SHE WILL NOT HAVE A ANGIOGRAM 08/27. 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 THEY NEED A MCGLADE CONSULT BECAUSE THE PT'S GRAFT IS NOT GETTING ENOUGH BLOOD FLOW. PT IS NO LONGER NPO AT 0000.
[2023-08-27 19:28] VITALS: BP 94/77
[2023-08-27] MEDS ORDERED: Melatonin 5 MG Tablet PO ONE (20:20)
[2023-08-28 03:49] VITALS: BP 108/69
[2023-08-28 04:03] LABS: Hematocrit 32.9 % (33.0-51.0); Mean Corpuscular HGB 31.8 pg (26.0-34.0); Mean Corpuscular HGB Conc 33.4 g/dL (31.5-36.5); Mean Corpuscular Volume 95 fL (80-100); Mean Platelet Volume 10.1 fL (9.1-12.4); NRBC ABSOLUTE 0.03 K/mm3 (0.00-0.02); NRBC Auto 0.2 /100 WBC (0.0-0.2); Platelet Count 406 K/mm3 (150-400); RDW Coefficient Variation 14.5 % (11.7-14.2); RDW Standard Deviation 50.1 fL (35.1-46.3); Red Blood Cell Count 3.46 M/mm3 (3.80-5.20); White Blood Cell Count 13.49 K/mm3 (4.00-11.30)
[2023-08-28 04:24] LABS: Anion Gap 10 mmol/L (3-11); Blood Urea Nitrogen 41 mg/dL (8-24); Bun/Creatinine Ratio 29.3 (12.0-20.0); CO2, Blood 24 mmol/L (21-32); Calcium, Blood 9.6 mg/dL (8.5-10.1); Chloride, Blood 109 mmol/L (98-108); Glomerular Filtration Rate 39 (60-); Glucose, Blood 220 mg/dL (70-99); Phosphorus, Blood 3.6 mg/dL (2.5-4.9); Sodium, Blood 139 mmol/L (136-145)
[2023-08-28] MEDS ORDERED: Dose Adjust by Pharmacy XX STA ×3 (04:31→18:32)
--- NOTE | 2023-08-28 06:23 | NUR ---
SHIFT SUMMARY ASSUMED CARE OF PATIENT AT 1900. PATIENT ALERT AND ORIENTED THROUGHOUT THE NIGHT. ANXIOUS ABOUT CARDIAC TESTS/RESULTS, REQUESTING SOMETING FOR SLEEP. MELATONIN ORDERED PER MD, PT APPEARED TO REST WELL WITH EVEN CHEST RISE AND FALL OVERNIGHT. BP STABLE. AFEBRILE. 2L O2 VIA NC DURING SLEEP D/T INTERMITTENT DESATTING TO 80'S ON RA WHILE ASLEEP. HEPARIN GTT INFUSING, RATE CHANGE PER PHARMACY TO 15 UNITS/KG/HR. PATIENT HAS BEEN NPO SINCE MIDNIGHT. NO OTHER SIGNIFICANT EVENTS OVERNIGHT.
[2023-08-28 08:54] VITALS: BP 139/98
[2023-08-28 11:07] VITALS: BP 110/40
[2023-08-28 16:10] VITALS: BP 109/73
--- NOTE | 2023-08-28 16:55 | NUR ---
SHIFT SUMMARY PT REMAINS ALERT AND ORIENTED. BP STABLE. HR REMAINS NSR 70'S. O2 SATS HAVE REMAINED ABOVE 90% ON 2L NC. PT DENIES ANY PAIN AT THIS TIME. PT ABLE TO REPOSITION HERSELF IN THE BED. PUREWICK DEVICE IN PLACE. PT UP TO CHAIR FOR MOST OF MORNING AND AFTERNOON. HEP GTT INFUSING PER ORDERS. PT TO BE NPO AT MIDNIGHT FOR PROCEDURE WITH DR. VELASQUEZ TOMORROW. PT AWARE. WILL CONTINUE TO MONITOR AND REPORT TO ONCOMING RN
[2023-08-28 19:21] VITALS: BP 105/84
[2023-08-28 23:45] VITALS: BP 99/73
[2023-08-29] VITALS (8 sets, daily range): BP systolic 92–146; BP diastolic 57–80
[2023-08-29 01:09] LABS: Hematocrit 35.2 % (33.0-51.0); Hemoglobin 11.8 g/dL (11.5-16.0); Mean Corpuscular HGB 31.8 pg (26.0-34.0); Mean Corpuscular HGB Conc 33.5 g/dL (31.5-36.5); Mean Corpuscular Volume 95 fL (80-100); Mean Platelet Volume 9.7 fL (9.1-12.4); Platelet Count 392 K/mm3 (150-400); RDW Coefficient Variation 14.2 % (11.7-14.2); RDW Standard Deviation 48.4 fL (35.1-46.3); Red Blood Cell Count 3.71 M/mm3 (3.80-5.20); White Blood Cell Count 14.86 K/mm3 (4.00-11.30)
[2023-08-29 01:28] LABS: Bun/Creatinine Ratio 28.2 (12.0-20.0); Calcium, Blood 9.5 mg/dL (8.5-10.1); Creatinine, Blood 1.63 mg/dL (0.40-1.00)
[2023-08-29] MEDS ORDERED: Clarify Drug Order XX ONE (01:30)
--- NOTE | 2023-08-29 06:13 | NUR ---
SHIFT SUMMARY PATIENT ORIENTED x4. COOPERATIVE WITH CARES. APPROPRIATELY EXPRESSES NEEDS. SLEEP STUDY IN PROGRESS THIS SHIFT. VITALS STABLE. NO ACUTE EVENTS. PATIENT HAS BEEN NPO SINCE MIDNIGHT WITH MINIMAL DISTURBANCES TO HER SLEEP. PLAN FOR ANIGO TODAY PER MD NOTE.
--- NOTE | 2023-08-29 08:12 | NUR ---
INITIAL ASSESSMENT PATIENT ALERT AND ORIENTED X 4, AFEBRILE. PATIENT [place]; SPEECH SLIGHTLY MUMBLED. PATIENT DENIES PAIN. PATIENT WEAK; 1 PERSON ASSIST TO CHAIR. LUNGS CLEAR. PATIENT SATTING 90% AND GREATER ON RA. PATIENT SLIGHTLY SOB WITH EXERTION. PATIENT IN SR WITH BBB, HR IN THE 70S. SBP IN THE 90S ON R ARM. GI WNL. PATIENT NPO FOR POSSIBLE PROCEDURE TODAY. - PUREWICK IN PLACE. SKIN APPEARS C/D/I. HEPARIN DRIP AT 14 UNITS/ KG/ HOUR. BED LOW, CALL LIGHT IN REACH. CARE CONTINUES.
--- NOTE | 2023-08-29 12:35 | NUR ---
PATIENT AFEBRILE. HR IN THE 70S. SBP IN THE LOW 100S. BLOOD SUGAR 123. NO ACUTE CHANGES TO NOTE ON AT THIS TIME. NO COMPLAINTS AT THIS TIME. CALL LIGHT IN REACH. CARE CONTINUES.
[2023-08-29] MEDS ORDERED: Heparin Sodium 1000 Units/ML 10ML MDV ONE ×2 (13:14→14:24)
[2023-08-29] MEDS ORDERED: Verapamil HCL 2.5 MG/ML 2ML Injection ONE (13:14)
[2023-08-29] MEDS ORDERED: NS 1,000 ML IV ONE ×2 (13:14→13:48)
[2023-08-29] MEDS ORDERED: Nitroglycerin 2 MG/20 ML BTL ONE (13:15)
--- NOTE | 2023-08-29 13:42 | NUR ---
[facility] HAS TAKEN PATIENT.
[2023-08-29] MEDS ORDERED: FentaNYL Citrate 50 MCG/ML 2 ML Injection ONE (13:48)
[2023-08-29] MEDS ORDERED: Midazolam HCl 1MG / ML 2ML Vial ONE (13:48)
--- NOTE | 2023-08-29 15:35 | NUR ---
PATIENT BACK FROM COOPERAGE SHOP SUPERVISOR. TR BAND TO L WRIST WITH 10 MLS AIR INFLATED. HARSHA RN DEFLATED 1 ML OF AIR BECAUSE FINGERS PURPLE. THIS NURSE THEN DEFLATED 1 MORE ML ABOUT 10 MINUTES LATER FINGERS STILL VERY PURPLE AND COLD. TR BAND SITE WNL AT THIS TIME; NO BLEEDING, BRUISING OR HEMATOMA NOTED. CAP REFILL LESS THAN 2 SECONDS. R GROIN SITE WITH ANGIOSEAL; NO BLEEDING, BRUISING OR HEMATOMA NOTED. CARE CONTINUES.
--- NOTE | 2023-08-29 16:17 | NUR ---
DR. COLE CALLED AND ASKED IF OKAY FOR PATIENT TO EAT AND IF WANTED HEPARIN DRIP RESTARTED. STATED TO CALL DR. CANO AND ASK. DR. CANO CALLED AND STATED OKAY TO GIVE PATIENT DIET AND TO GO AHEAD AND RESTART HEPARIN DRIP AT THIS TIME. DR. CANO INFORMED THAT PATIENT'S SON, SARAH, WOULD LIKE TO BE CALLED AND UPDATED ON PATIENT.
--- NOTE | 2023-08-29 17:00 | NUR ---
PATIENT AFEBRILE. HR IN THE 80S. SBP IN THE 140S. TR BAND TO L WRIST INSTILLED WITH 8 MLS AIR. BOTH L RADIAL AND L GROIN SITES WNL. NO OTHER ACUTE CHANGES TO NOTE ON AT THIS TIME. CARE CONTINUES.
--- NOTE | 2023-08-29 17:35 | NUR ---
2 ML AIR DEFLATED FROM TF BAND. SITE REMAINS WNL.
--- NOTE | 2023-08-29 17:48 | NUR ---
SLIGHT OOZING NOTED AT L RADIAL SITE. 1 ML AIR INSTILLED.
[2023-08-29] MEDS ORDERED: Apixaban 5 MG Tab PO SCH (18:00)
--- NOTE | 2023-08-29 18:31 | NUR ---
2 ML AIR DEFLATED FROM TR BAND. NO BLEEDING, BRUISING, HEMATOMA NOTED.
--- NOTE | 2023-08-29 19:14 | NUR ---
SHIFT SUMMARY PATIENT REMAINED ALERT AND ORIENTED X 4, AFEBRILE. VSS. REMAINED SATTING 90% AND GREATER ON RA. GOOD URINE OUTPUT. TR BAND HAS 5 MLS AIR LEFT. SMALL AMOUNT OF BLOOD NOTED FROM WHEN OOZED AT ONE POINT. NO BLEEDING AT THIS TIME. L GROIN REMAINS STABLE AND SOFT; NO BLEEDING OR HEMATOMA. REPORT GIVEN TO ASSUMING MATERIALS HANDLER NURSE.
--- NOTE | 2023-08-29 22:30 | NUR ---
ASSUMED CARE AT 1900 PATIENT IN BED ON PHONE. A&OX4 ABLE TO TAKE PART IN CARE, HAS PUREWICK WITH DEPENDS, LUNGS CLEAR BILATERAL, HR IN THE 80'S AND SBP IN THE 110'S. TR BAND ON RIGHT RADIAL 5CC WITH ARMBOARD ON. GROIN SITE DRY AND COVERED WITH TEGADERM. CALL LIGHT WITHN REACH.
[2023-08-30] VITALS: BP 136/66
[2023-08-30 03:00] VITALS: BP 117/54
[2023-08-30 04:00] VITALS: BP 154/75
[2023-08-30 04:10] LABS: BASOPHILS ABSOLUTE AUTO 0.04 K/mm3 (0.00-0.23); BASOPHILS PERCENT AUTO 0 % (0-2); EOSINOPHILS ABSOLUTE AUTO 0.62 K/mm3 (0.00-0.68); EOSINOPHILS PERCENT AUTO 5 % (0-6); Hematocrit 35.4 % (33.0-51.0); Hemoglobin 11.6 g/dL (11.5-16.0); IMMATURE GRAN ABSOLUTE AUTO 0.11 K/mm3 (0.00-0.10); IMMATURE GRAN PERCENT AUTO 1 % (0-1); LYMPHOCYTES ABSOLUTE AUTO 3.83 K/mm3 (0.84-5.20); LYMPHOCYTES PERCENT AUTO 29 % (21-46); MONOCYTES ABSOLUTE AUTO 0.94 K/mm3 (0.16-1.47); MONOCYTES PERCENT AUTO 7 % (4-13); Mean Corpuscular HGB 31.5 pg (26.0-34.0); Mean Corpuscular HGB Conc 32.8 g/dL (31.5-36.5); Mean Corpuscular Volume 96 fL (80-100); NEUTROPHILS ABSOLUTE AUTO 7.79 K/mm3 (1.96-9.15); NEUTROPHILS PERCENT AUTO 58 % (41-73); Platelet Count 360 K/mm3 (150-400); RDW Coefficient Variation 14.1 % (11.7-14.2); RDW Standard Deviation 49.6 fL (35.1-46.3); Red Blood Cell Count 3.68 M/mm3 (3.80-5.20); White Blood Cell Count 13.33 K/mm3 (4.00-11.30)
--- NOTE | 2023-08-30 06:11 | NUR ---
SHIFT SUMMARY PATIENT IN BED THROUGH NIGHT. HAD SOME BACK AND BUTTOCKS PAIN AND REPOSITIONED HERSELF OFTEN. A&O X4 THROUGH SHIFT, HR IN THE 70-80'S. SBP 110'S. LUNGS CLEAR, RADIAL PULSE STRONG BILATERALLY. CALL LIGHT WITHIN REACH.
--- NOTE | 2023-08-30 07:35 | NUR ---
Pt is alert, oriented and pleasantly conversant. Both the left groin site and left wrist arterial accesses are WNL. Pt reports some discomfort due to bedrest but relief with getting up to the recliner chair, where she was upon my entry. Ambulatory to the bathroom with geriwalker for toileting. Purewick removed.
[2023-08-30 07:36] VITALS: BP 111/76
[2023-08-30] MEDS ORDERED: Apixaban 5 MG Tab PO SCH (09:00)
--- NOTE | 2023-08-30 09:42 | NUR ---
Pt up frequently to use toilet. Lasix given now, and purewick placed per her request due to fatigue.
[2023-08-30] MEDS ORDERED: Crestor40 MG PO (11:31)
[2023-08-30] MEDS ORDERED: ELIQUIS5 MG PO (11:38)
[2023-08-30] MEDS ORDERED: ELIQUIS5 M2 PO (11:38)
[2023-08-30] MEDS ORDERED: BUDESONIDE1 MG/2 M1 INH (11:40)
[2023-08-30] MEDS ORDERED: EZET10 PO (11:40)
[2023-08-30] MEDS ORDERED: LIDO5TO TOP (11:41)
[2023-08-30] MEDS ORDERED: ENTRESTO 49 MG1 EACH PO (11:42)
[2023-08-30] MEDS ORDERED: ASPIRIN REGIMEN81 MG PO (11:43)
[2023-08-30] MEDS ORDERED: HUMALOG KW100 UNIT/1 SC (11:48)
--- NOTE | 2023-08-30 13:07 | NUR ---
Discharge instructions were reviewed in detail with the patient. New medications and their directions, care of her radial and groin sites, follow up appointments were all reveiwed and the pt verbalized understanding. She asked that a cab be called for her to pay for herself as her son is working in [place] and she said he will probably not be able to pick her up until much later today. Telemetry montoring discontinued, and peripheral IV was removed.
--- NOTE | 2023-08-30 14:20 | NUR ---
Transport based on ride benefits being arranged by freelance digital project manager.
[2023-09-05] MEDS ORDERED: Apixaban 5 MG Tab PO SCH (21:00)
== END 2023-08-30 14:51 | disposition home health service (06) | DRG 175 ==
LOC: ER 03:31 → PCU 05:12 → ERHOLD 05:12 → PCU 08:17
PROVIDERS: Emergency Medicine; Family Medicine; Hospitalist; Internal Medicine; ADMIT Internal Medicine
PROC: 5A09357 Assistance with Respiratory Ventilation, Less than 24 Consecutive Hours, Continuous Positive Airway Pressure (ICD-10-PCS; 2023-08-23)
PROC: B3121ZZ Fluoroscopy of Left Subclavian Artery using Low Osmolar Contrast (ICD-10-PCS; principal; 2023-08-29)
DX: I26.93 Single subsegmental thrombotic pulmonary embolism without acute cor pulmonale (principal); I21.A1 Myocardial infarction type 2; I50.43 Acute on chronic combined systolic (congestive) and diastolic (congestive) heart failure; J96.01 Acute respiratory failure with hypoxia; J96.02 Acute respiratory failure with hypercapnia; G45.8 Other transient cerebral ischemic attacks and related syndromes; J45.901 Unspecified asthma with (acute) exacerbation; I13.0 Hypertensive heart and chronic kidney disease with heart failure and stage 1 through stage 4 chronic kidney disease, or unspecified chronic kidney disease; E87.4 Mixed disorder of acid-base balance; Z66 Do not resuscitate; E11.22 Type 2 diabetes mellitus with diabetic chronic kidney disease; N18.30 Chronic kidney disease, stage 3 unspecified; I25.10 Atherosclerotic heart disease of native coronary artery without angina pectoris; E83.42 Hypomagnesemia; E78.5 Hyperlipidemia, unspecified; G47.33 Obstructive sleep apnea (adult) (pediatric); F32.A Depression, unspecified; J44.9 Chronic obstructive pulmonary disease, unspecified; Z95.5 Presence of coronary angioplasty implant and graft; Z79.4 Long term (current) use of insulin; Z79.899 Other long term (current) drug therapy; Z79.51 Long term (current) use of inhaled steroids; I25.2 Old myocardial infarction; Z95.1 Presence of aortocoronary bypass graft
CPT/HCPCS: 0202U; 36415; 71045; 71260; 75710; 76937; 78452; 80048; 80053; 80061; 80069; 82803; 82947; 83036; 83605; 83735; 83880; 84100; 84145; 84484; 85025; 85027; 85379; 85520; 85610; 85730; 87040; 87077; 93005; 93010; 93017; 93306; 94640; 94660; 94664; 94760; 94762; 96374-59; 99152; 99153; 99285-25; A9270; A9500; C1760; C1769; C1887; C1894; J0280; J1644; J1815; J1940; J1956; J2250; J2785; J2919; J3010; J3370; J3475; J7030; J7040; J7626; Q9967

== ENCOUNTER 2024-03-18 22:23 | Inpatient (IN) | payer OTHER ==
[~2024-03-18] VITALS: Ht 157.5 cm; Wt 78.1 kg
[~2024-03-18 22:23] MED LIST changes: +ASPIRIN REGIMEN81 MG PO; +BUDESONIDE1 MG/2 M1 INH; +Crestor40 MG PO; +ELIQUIS5 M2 PO; +ELIQUIS5 MG PO; +ENTRESTO 49 MG1 EACH PO; +EZET10 PO; +HUMALOG KW100 UNIT/1 SC; +LIDO5TO TOP
[2024-03-18] MEDS ORDERED: MethylPREDNISolone Sod Succ 125 MG Vial IV ONE (22:30)
[2024-03-18 23:27] LABS: CORONAVIRUS COVID-19 AG Negative (NEGATIVE); INFLUENZA A AG Negative (NEGATIVE); INFLUENZA B AG Negative (NEGATIVE)
[2024-03-18 23:39] LABS: BASOPHILS ABSOLUTE AUTO 0.06 K/mm3 (0.00-0.23); BASOPHILS PERCENT AUTO 1 % (0-2); EOSINOPHILS PERCENT AUTO 2 % (0-6); Hematocrit 33.7 % (33.0-51.0); Hemoglobin 11.1 g/dL (11.5-16.0); IMMATURE GRAN ABSOLUTE AUTO 0.03 K/mm3 (0.00-0.10); IMMATURE GRAN PERCENT AUTO 0 % (0-1); LYMPHOCYTES PERCENT AUTO 9 % (21-46); MONOCYTES ABSOLUTE AUTO 0.56 K/mm3 (0.16-1.47); MONOCYTES PERCENT AUTO 6 % (4-13); Mean Corpuscular HGB 31.2 pg (26.0-34.0); Mean Corpuscular HGB Conc 32.9 g/dL (31.5-36.5); Mean Corpuscular Volume 95 fL (80-100); Mean Platelet Volume 9.6 fL (9.1-12.4); NEUTROPHILS ABSOLUTE AUTO 8.17 K/mm3 (1.96-9.15); NEUTROPHILS PERCENT AUTO 82 % (41-73); Platelet Count 275 K/mm3 (150-400); RDW Coefficient Variation 13.6 % (11.7-14.2); RDW Standard Deviation 47.8 fL (35.1-46.3); Red Blood Cell Count 3.56 M/mm3 (3.80-5.20); White Blood Cell Count 9.92 K/mm3 (4.00-11.30)
[2024-03-18 23:58] LABS: Albumin, Blood 3.3 g/dL (3.4-5.0); Albumin/Globulin Ratio 0.9 (0.8-1.8); Bilirubin, Total 0.4 mg/dL (0.1-1.0); Bun/Creatinine Ratio 14.3 (12.0-20.0); Calcium, Blood 9.8 mg/dL (8.5-10.1); Creatinine, Blood 1.26 mg/dL (0.40-1.00); Globulin, Blood 3.5 g/dL (2.2-4.0); Potassium, Blood 4.6 mmol/L (3.5-5.5); Total Protein, Blood 6.8 g/dL (6.4-8.2)
[2024-03-19] MEDS ORDERED: Ketorolac Tromethamine 15mg Vial IV ONE (03:20)
[2024-03-19] MEDS ORDERED: Melatonin 5 MG Tablet PO PRN (04:10)
[2024-03-19] MEDS ORDERED: Nitroglycerin 0.4 MG SUBL SL PRN (04:15)
[2024-03-19] MEDS ORDERED: Ondansetron HCl 2 MG / ML 2ML Vial IV PRN (04:15)
[2024-03-19] MEDS ORDERED: FLU VACC TS2024-25(6MOS UP)/PF 45 MCG/0.5 ML SYRINGE IM ONE (04:20)
[2024-03-19] MEDS ORDERED: Acetaminophen 325 MG TABLET PO PRN (04:20)
[2024-03-19] MEDS ORDERED: ELIQUIS2.5 MG PO (04:56)
[2024-03-19] MEDS ORDERED: MELO7.5 PO (04:57)
[2024-03-19 05:09] VITALS: BP 176/91
[2024-03-19] MEDS ORDERED: INSULANPEN SC (05:16)
[2024-03-19] MEDS ORDERED: SENN187 PO (05:19)
--- NOTE | 2024-03-19 05:39 | NUR ---
PT ADMITTED FROM ED THIS AM. PT A&OX4, NO SKIN ISSUES, B/P ELEVATED, DID NOT TAKE HER PM MEDS ON 03/18. PT WITH DIABETES AND SHE IS 400 CURRENTLY, BUT DID NOT TAKE HER PM DOSE OF INSULIN. PT AMBULATED TO BR AND THEN BED WITH CGA. CONTINENT OF URINE. AWAITING CALL BACK FROM [facility] [place], AND WILL HAVE ECHO AND STRESS TEST ON 03/19. FALL PERCAUTIONS TAUGHT TO PT AND BED ALARM PLACED JUST IN CASE SHE FORGETS.
[2024-03-19 05:59] LABS: BASOPHILS ABSOLUTE AUTO 0.03 K/mm3 (0.00-0.23); BASOPHILS PERCENT AUTO 0 % (0-2); EOSINOPHILS PERCENT AUTO 0 % (0-6); Hematocrit 32.2 % (33.0-51.0); Hemoglobin 10.8 g/dL (11.5-16.0); IMMATURE GRAN ABSOLUTE AUTO 0.03 K/mm3 (0.00-0.10); IMMATURE GRAN PERCENT AUTO 0 % (0-1); LYMPHOCYTES ABSOLUTE AUTO 0.41 K/mm3 (0.84-5.20); LYMPHOCYTES PERCENT AUTO 5 % (21-46); MONOCYTES ABSOLUTE AUTO 0.05 K/mm3 (0.16-1.47); MONOCYTES PERCENT AUTO 1 % (4-13); Mean Corpuscular HGB Conc 33.5 g/dL (31.5-36.5); Mean Corpuscular Volume 93 fL (80-100); Mean Platelet Volume 9.9 fL (9.1-12.4); NEUTROPHILS ABSOLUTE AUTO 7.01 K/mm3 (1.96-9.15); NEUTROPHILS PERCENT AUTO 93 % (41-73); Platelet Count 284 K/mm3 (150-400); RDW Coefficient Variation 13.5 % (11.7-14.2); RDW Standard Deviation 46.5 fL (35.1-46.3); Red Blood Cell Count 3.48 M/mm3 (3.80-5.20); White Blood Cell Count 7.53 K/mm3 (4.00-11.30)
[2024-03-19] MEDS ORDERED: Insulin Regular 100 UNIT/ML 10ML Vial SC SCH (06:00)
[2024-03-19 06:22] LABS: Albumin, Blood 3.2 g/dL (3.4-5.0); Albumin/Globulin Ratio 0.9 (0.8-1.8); Bilirubin, Total 0.4 mg/dL (0.1-1.0); Bun/Creatinine Ratio 15.4 (12.0-20.0); CHOL/HDL RATIO 3.6; Calcium, Blood 10.1 mg/dL (8.5-10.1); Cholesterol 225 mg/dL (50-200); Creatinine, Blood 1.23 mg/dL (0.40-1.00); Globulin, Blood 3.7 g/dL (2.2-4.0); HDL Cholesterol 62 mg/dL (>39); LDL/HDL RATIO 2.3; Low Density Lipoprotein Chol 145 mg/dL (0-110); Potassium, Blood 4.8 mmol/L (3.5-5.5); Total Protein, Blood 6.9 g/dL (6.4-8.2); Triglycerides 92 mg/dL (30-160); Very Low Density Lipoprot Chol 18 mg/dL (6-32)
[2024-03-19 07:49] VITALS: BP 99/63
[2024-03-19] MEDS ORDERED: Sacubitril/Valsartan 49 MG/51 MG Tab PO SCH (09:00)
[2024-03-19] MEDS ORDERED: Aspirin 81 MG Chew PO SCH (09:00)
[2024-03-19] MEDS ORDERED: Ezetimibe 10 MG Tab PO SCH (09:00)
[2024-03-19] MEDS ORDERED: Furosemide 40 MG Tab PO SCH (09:00)
[2024-03-19] MEDS ORDERED: Rosuvastatin Calcium 10 MG Tab PO SCH (09:00)
[2024-03-19] MEDS ORDERED: Empagliflozin 10 MG TAB PO SCH (09:00)
[2024-03-19] MEDS ORDERED: Apixaban 5 MG Tab PO SCH (09:00)
[2024-03-19] MEDS ORDERED: Loratadine 10 MG Tab PO SCH (09:00)
[2024-03-19] MEDS ORDERED: Metoprolol Succinate 50 MG TABCR PO SCH (09:00)
[2024-03-19 11:42] VITALS: BP 131/70
[2024-03-19] MEDS ORDERED: Regadenoson 0.4 MG/5 ML SYRINGE ONE (14:33)
[2024-03-19] MEDS ORDERED: Caffeine Citrated 60 MG/3 ML Vial ONE (14:33)
[2024-03-19] MEDS ORDERED: Albuterol HFA200 ACT/6.7 GM INH INH PRN (17:35)
[2024-03-19] MEDS ORDERED: Insulin Human Lispro 100 Units/ML 3ML Syringe SC SCH (18:00)
[2024-03-19] MEDS ORDERED: Insulin Glargine-Yfgn 100 Unit/mL 3 ML SYR SC SCH ×2 (21:00)
[2024-03-19] MEDS ORDERED: Pramipexole DI-HCL 0.125 MG Tab PO SCH (21:00)
[2024-03-19 21:24] VITALS: BP 136/93
[2024-03-20 04:11] VITALS: BP 116/72
--- NOTE | 2024-03-20 05:18 | NUR ---
AAOX4, INDEPENDENT IN ROOM WITH WALKER. TELE IN PLACE. RA. EMOTIONAL AND CRING @ BEGINING OF SHIFT, LISTENED, OFFERED SUPPORT AND PUT IN A SS CONSULT. SHE DID NOT SLEEP MUCH. ACHS BG CHECKS. PLAN IS POSSIBLY HOME 2.
[2024-03-20 05:50] LABS: Bun/Creatinine Ratio 25.9 (12.0-20.0); Calcium, Blood 10.4 mg/dL (8.5-10.1); Creatinine, Blood 1.43 mg/dL (0.40-1.00); Potassium, Blood 3.8 mmol/L (3.5-5.5)
[2024-03-20 07:50] VITALS: BP 119/83
[2024-03-20] MEDS ORDERED: Citalopram Hydrobromide 20 MG Tab PO SCH (09:00)
[2024-03-20] MEDS ORDERED: Sennosides 8.6 MG Tab PO SCH (09:00)
[2024-03-20] MEDS ORDERED: Potassium Chloride 10 Meq Tablet SA PO SCH (09:00)
[2024-03-20 11:34] VITALS: BP 118/89
[2024-03-20] MEDS ORDERED: JARDIANCE10 MG PO (12:36)
[2024-03-20] MEDS ORDERED: HUMALOG KW100 UNIT/1 SC (12:37)
--- NOTE | 2024-03-20 14:04 | NUR ---
DISCHARGE SUMMARY PATIENT EDUCATED ON DISCHARGE PACKET, INSTRUCTIONS AND NEW PRESCRIPTIONS. IV REMOVED. TELE DC'D. BELONGINGS GATHERED AND RETURNED. PATIENT ESCORTED DOWN VIA WHEELCHAIR BY FUSING FURNACE LOADER. FAMILY TOOK HOME.
== END 2024-03-20 13:36 | disposition home or self-care (01) | DRG 189 ==
LOC: ER 22:23 → MEDS 03-19 04:08 → ERHOLD 03-19 04:08 → MEDS 03-19 04:58
PROVIDERS: Internal Medicine; Student in an Organized Health Care Education/Training Program; ADMIT Student in an Organized Health Care Education/Training Program
DX: J96.01 Acute respiratory failure with hypoxia (principal); I50.42 Chronic combined systolic (congestive) and diastolic (congestive) heart failure; I13.0 Hypertensive heart and chronic kidney disease with heart failure and stage 1 through stage 4 chronic kidney disease, or unspecified chronic kidney disease; J44.1 Chronic obstructive pulmonary disease with (acute) exacerbation; R07.9 Chest pain, unspecified; F32.A Depression, unspecified; D63.1 Anemia in chronic kidney disease; E11.65 Type 2 diabetes mellitus with hyperglycemia; E11.22 Type 2 diabetes mellitus with diabetic chronic kidney disease; I25.10 Atherosclerotic heart disease of native coronary artery without angina pectoris; N18.30 Chronic kidney disease, stage 3 unspecified; I77.1 Stricture of artery; I25.2 Old myocardial infarction; Z95.5 Presence of coronary angioplasty implant and graft; Z95.1 Presence of aortocoronary bypass graft; Z79.01 Long term (current) use of anticoagulants; Z79.82 Long term (current) use of aspirin; Z86.711 Personal history of pulmonary embolism; Z88.1 Allergy status to other antibiotic agents; Z88.5 Allergy status to narcotic agent; Z88.8 Allergy status to other drugs, medicaments and biological substances; Z79.4 Long term (current) use of insulin; Z79.84 Long term (current) use of oral hypoglycemic drugs; Z79.51 Long term (current) use of inhaled steroids
CPT/HCPCS: 36415; 71045; 78452; 80048; 80053; 80061; 82947; 83036; 83735; 84443; 84484; 85025; 87428-QW; 93005; 93010; 93017; 94760; 94762; 96374; 96375; 99285-25; A9270; A9500; J0706; J1815; J1885; J2785; J2919

== ENCOUNTER 2024-04-09 03:14 | Inpatient (IN) | payer MEDICARE ==
[~2024-04-09] VITALS: Ht 157.5 cm; Wt 79.2 kg
[~2024-04-09 03:14] MED LIST changes: +ELIQUIS2.5 MG PO; +SENN187 PO
[2024-04-09 03:33] LABS: Base Excess Venous -8.6 mmol/L; Bicarbonate Venous 17.9 mmol/L (24.0-30.0); PCO2 Venous 40.7 mmHg (38-42); pH Blood Venous 7.26 (7.34-7.37)
[2024-04-09 03:37] LABS: BASOPHILS ABSOLUTE AUTO 0.07 K/mm3 (0.00-0.23); BASOPHILS PERCENT AUTO 1 % (0-2); EOSINOPHILS ABSOLUTE AUTO 0.75 K/mm3 (0.00-0.68); EOSINOPHILS PERCENT AUTO 7 % (0-6); Hematocrit 36.5 % (33.0-51.0); Hemoglobin 11.9 g/dL (11.5-16.0); Mean Corpuscular HGB 31.6 pg (26.0-34.0); Mean Corpuscular HGB Conc 32.6 g/dL (31.5-36.5); Mean Corpuscular Volume 97 fL (80-100); Mean Platelet Volume 9.8 fL (9.1-12.4); Platelet Count 353 K/mm3 (150-400); RDW Coefficient Variation 14.3 % (11.7-14.2); Red Blood Cell Count 3.76 M/mm3 (3.80-5.20); White Blood Cell Count 11.18 K/mm3 (4.00-11.30)
[2024-04-09 03:38] LABS: IMMATURE GRAN ABSOLUTE AUTO 0.03 K/mm3 (0.00-0.10); IMMATURE GRAN PERCENT AUTO 0 % (0-1); LYMPHOCYTES ABSOLUTE AUTO 5.35 K/mm3 (0.84-5.20); LYMPHOCYTES PERCENT AUTO 48 % (21-46); MONOCYTES ABSOLUTE AUTO 0.54 K/mm3 (0.16-1.47); MONOCYTES PERCENT AUTO 5 % (4-13); NEUTROPHILS ABSOLUTE AUTO 4.44 K/mm3 (1.96-9.15); NEUTROPHILS PERCENT AUTO 40 % (41-73)
[2024-04-09 03:49] LABS: Albumin, Blood 3.3 g/dL (3.4-5.0); Albumin/Globulin Ratio 0.8 (0.8-1.8); Bilirubin, Total 0.5 mg/dL (0.1-1.0); Calcium, Blood 9.7 mg/dL (8.5-10.1); Creatinine, Blood 1.17 mg/dL (0.40-1.00); Globulin, Blood 4.2 g/dL (2.2-4.0); Potassium, Blood 4.2 mmol/L (3.5-5.5); Total Protein, Blood 7.5 g/dL (6.4-8.2)
[2024-04-09] MEDS ORDERED: Ipratropium/Albuterol SulF 2.5-0.5MG/3 ML Amp INH ONE (04:50)
[2024-04-09] MEDS ORDERED: LevoFLOXacin 750 MG/D5W 150ML 150 ML IV ONE (04:50)
[2024-04-09] MEDS ORDERED: FLU VACC TS2024-25(6MOS UP)/PF 45 MCG/0.5 ML SYRINGE IM ONE (05:20)
[2024-04-09] MEDS ORDERED: Ondansetron HCl 2 MG / ML 2ML Vial IV PRN (05:20)
[2024-04-09] MEDS ORDERED: Sodium Bicarb 8.4% 1 MEQ/ML 50 ML Vial IV ONE (06:00)
[2024-04-09] MEDS ORDERED: Furosemide 10 MG / ML 2ML Vial IV SCH (06:00)
[2024-04-09] MEDS ORDERED: Ipratropium/Albuterol SulF 2.5-0.5MG/3 ML Amp INH SCH (08:20)
[2024-04-09] MEDS ORDERED: Acetaminophen 325 MG TABLET PO PRN (08:25)
[2024-04-09] MEDS ORDERED: Albuterol HFA200 ACT/6.7 GM INH INH PRN (08:35)
[2024-04-09 08:58] LABS: Influenza A, PCR NEGATIVE (NEGATIVE); Influenza B, PCR NEGATIVE (NEGATIVE); Resp Syncytial Virus, PCR NEGATIVE (NEGATIVE); SARS-Cov-2 (COVID-19) PCR, MMC NEGATIVE (NEGATIVE)
[2024-04-09] MEDS ORDERED: Citalopram Hydrobromide 20 MG Tab PO SCH (09:00)
[2024-04-09] MEDS ORDERED: Aspirin 81 MG TabEC PO SCH (09:00)
[2024-04-09] MEDS ORDERED: Apixaban 5 MG Tab PO SCH (09:00)
[2024-04-09] MEDS ORDERED: Potassium Chloride 10 Meq Tablet SA PO SCH (09:00)
[2024-04-09] MEDS ORDERED: Metoprolol Succinate 25 MG TABCR PO SCH (09:00)
[2024-04-09] MEDS ORDERED: Enoxaparin 40 MG/0.4 ML SYR SC SCH (09:00)
[2024-04-09] MEDS ORDERED: Rosuvastatin Calcium 10 MG Tab PO SCH (09:00)
[2024-04-09] MEDS ORDERED: Sacubitril/Valsartan 49 MG/51 MG Tab PO SCH (09:00)
[2024-04-09] MEDS ORDERED: Sennosides 8.6 MG Tab PO SCH (09:00)
[2024-04-09] MEDS ORDERED: Ezetimibe 10 MG Tab PO SCH (09:00)
[2024-04-09] MEDS ORDERED: Empagliflozin 10 MG TAB PO SCH (09:00)
[2024-04-09] MEDS ORDERED: Saline Nasal Spray 45 ML PRN (10:25)
[2024-04-09] MEDS ORDERED: Insulin Human Lispro 100 Units/ML 3ML Syringe SC SCH (11:30)
[2024-04-09 14:53] LABS: Bun/Creatinine Ratio 11.8 (12.0-20.0); Calcium, Blood 10.5 mg/dL (8.5-10.1); Creatinine, Blood 1.27 mg/dL (0.40-1.00); Potassium, Blood 3.9 mmol/L (3.5-5.5)
[2024-04-09 17:36] VITALS: BP 116/88
[2024-04-09] MEDS ORDERED: MELO7.5 PO (18:05)
[2024-04-09] MEDS ORDERED: PRAM.125 PO (18:05)
--- NOTE | 2024-04-09 19:04 | NUR ---
PT ADMIT FROM ED. 2LNC. SBA TO BEDSIDE COMMODE. DENIES CHEST PAIN, SOB WITH EXERTION. ABLE TO EXPRESS NEEDS.
--- NOTE | 2024-04-09 19:05 | NUR ---
BEDSIDE SWALLOW EVAL COMPLETE. NO COUGH WITH SIPS OF WATER.
--- NOTE | 2024-04-09 19:06 | NUR ---
PT WEARS GLASSES, HEARING AIDS, AND DENTURES. ALL ITEMS LEFT AT HOME. SOFT BITE SIZE DIET ORDERED
[2024-04-09 19:20] VITALS: BP 101/56
[2024-04-09] MEDS ORDERED: Melatonin 5 MG Tablet PO SCH (21:00)
[2024-04-09] MEDS ORDERED: Insulin Glargine-Yfgn 100 Unit/mL 3 ML SYR SC SCH (21:00)
[2024-04-09 22:45] VITALS: BP 120/66
[2024-04-10 03:22] VITALS: BP 138/70
--- NOTE | 2024-04-10 04:03 | NUR ---
SHIFT SUMMARY PATIENT HAD NO ACUTE CHANGES. AXOX 4 AND SBA W/FWW TO BSC. ON 2L O2 NC. DENIES CHEST PAIN, SOB, AND N/V. VSS/AFEBRILE. CBG 251. TELE MONITOR NSR 85. RT IN FOR BREATHING TX. REPORTED LEG PAIN AND TYLENOL 650 MG GIVEN PER EMAR. CALL LIGHT IN REACH. BED IN LOWEST POSITION. WILL CONTINUE TO MONITOR UNTIL DAY SHIFT NURSE ASSUMES CARE.
[2024-04-10 04:52] LABS: BASOPHILS ABSOLUTE AUTO 0.02 K/mm3 (0.00-0.23); BASOPHILS PERCENT AUTO 0 % (0-2); EOSINOPHILS ABSOLUTE AUTO 0.04 K/mm3 (0.00-0.68); EOSINOPHILS PERCENT AUTO 0 % (0-6); Hematocrit 32.3 % (33.0-51.0); Hemoglobin 10.9 g/dL (11.5-16.0); IMMATURE GRAN ABSOLUTE AUTO 0.04 K/mm3 (0.00-0.10); IMMATURE GRAN PERCENT AUTO 0 % (0-1); LYMPHOCYTES ABSOLUTE AUTO 2.31 K/mm3 (0.84-5.20); LYMPHOCYTES PERCENT AUTO 19 % (21-46); MONOCYTES ABSOLUTE AUTO 0.82 K/mm3 (0.16-1.47); MONOCYTES PERCENT AUTO 7 % (4-13); Mean Corpuscular HGB 31.5 pg (26.0-34.0); Mean Corpuscular HGB Conc 33.7 g/dL (31.5-36.5); Mean Corpuscular Volume 93 fL (80-100); Mean Platelet Volume 9.8 fL (9.1-12.4); NEUTROPHILS ABSOLUTE AUTO 8.73 K/mm3 (1.96-9.15); NEUTROPHILS PERCENT AUTO 73 % (41-73); Platelet Count 301 K/mm3 (150-400); RDW Coefficient Variation 14.3 % (11.7-14.2); RDW Standard Deviation 48.7 fL (35.1-46.3); Red Blood Cell Count 3.46 M/mm3 (3.80-5.20); White Blood Cell Count 11.96 K/mm3 (4.00-11.30)
[2024-04-10 06:37] LABS: Albumin, Blood 3.2 g/dL (3.4-5.0); Albumin/Globulin Ratio 0.9 (0.8-1.8); Bilirubin, Total 0.7 mg/dL (0.1-1.0); Bun/Creatinine Ratio 18.5 (12.0-20.0); Calcium, Blood 10.5 mg/dL (8.5-10.1); Creatinine, Blood 1.57 mg/dL (0.40-1.00); Globulin, Blood 3.7 g/dL (2.2-4.0); Total Protein, Blood 6.9 g/dL (6.4-8.2)
[2024-04-10] MEDS ORDERED: Albuterol 2.5 MG/3 ML VIAL INH PRN (07:10)
[2024-04-10 07:29] VITALS: BP 114/68
--- NOTE | 2024-04-10 07:39 | NUR ---
TELEMETRY CALLED TO NOTIFY PATIENT WITH PROLONGED QTC. MD NOTIFIED VIA TELEPHONE, NO NEW ORDERS AT THIS TIME.
[2024-04-10] MEDS ORDERED: Apixaban 5 MG Tab PO SCH (09:00)
[2024-04-10] MEDS ORDERED: Furosemide 80 MG Tab PO SCH (09:00)
[2024-04-10 13:41] LABS: Bun/Creatinine Ratio 19.1 (12.0-20.0); Calcium, Blood 10.5 mg/dL (8.5-10.1); Creatinine, Blood 1.62 mg/dL (0.40-1.00); Potassium, Blood 3.8 mmol/L (3.5-5.5)
[2024-04-10 15:13] VITALS: BP 116/74
--- NOTE | 2024-04-10 19:15 | NUR ---
SHIFT SUMMARY PATIENT A/OX4, ABLE TO MAKE NEEDS KNOWN. PLEASANT AND TALKATIVE WITH STAFF. CLEARED BY PHYSICAL THERAPY TO BE INDEPENDENT IN ROOM THIS SHIFT. WEANED OFF OF SUPPLEMENTARY OXYGEN THIS AM BY RESPIRATORY THERAPY, TOLERATING WELL WITH SPO2 >90% ON ROOM AIR. TELEMETRY IN PLACE, TELEMETRY CALLED TO NOTIFY PATIENT WITH PROLONGED QTC THIS AM, MD AWARE. COMPLAINING OF HEADACHE THIS AFTERNOON, TYLENOL ADMINISTERED PER MAR EFFECTIVE. NO OTHER CONCERNS AT THIS TIME. REPORT GIVEN TO SEWING INSPECTOR RN.
[2024-04-10 19:52] VITALS: BP 114/82
[2024-04-10] MEDS ORDERED: Pramipexole DI-HCL 0.125 MG Tab PO SCH (21:00)
[2024-04-11 00:38] VITALS: BP 129/69
[2024-04-11 04:43] VITALS: BP 126/84
[2024-04-11 05:25] LABS: Hematocrit 35.7 % (33.0-51.0); Hemoglobin 11.7 g/dL (11.5-16.0); Mean Corpuscular HGB Conc 32.8 g/dL (31.5-36.5); Mean Corpuscular Volume 94 fL (80-100); Mean Platelet Volume 9.9 fL (9.1-12.4); Platelet Count 326 K/mm3 (150-400); RDW Coefficient Variation 14.4 % (11.7-14.2); RDW Standard Deviation 49.4 fL (35.1-46.3); Red Blood Cell Count 3.78 M/mm3 (3.80-5.20); White Blood Cell Count 10.75 K/mm3 (4.00-11.30)
[2024-04-11 05:50] LABS: Bun/Creatinine Ratio 20.9 (12.0-20.0); Calcium, Blood 10.4 mg/dL (8.5-10.1); Creatinine, Blood 1.82 mg/dL (0.40-1.00); Potassium, Blood 4.3 mmol/L (3.5-5.5)
[2024-04-11] MEDS ORDERED: LevoFLOXacin 500MG/D5W 100ML 100 ML IV SCH (06:00)
--- NOTE | 2024-04-11 06:07 | NUR ---
SHIFT SUMMARY PT HAS BEEN RESTING IN BED COMFORTABLY. PT AOX4, CALM AND COOPERATIVE. PT HAS BEEN ABLE TO MAKE NEEDS KNOWN. PT REPORTED INABILITY TO SLEEP AT NIGHT, BUT TONIGHT SHE HAS HAD STRETCHES OF UNINTERRUPTED SLEEP. PT HAD NO OTHER COMPLAINTS TONIGHT. PT HAD UNEVENTFUL EVENING.
[2024-04-11] MEDS ORDERED: LevoFLOXacin 250MG/D5W 50ML 50 ML IV SCH (07:00)
[2024-04-11 07:35] VITALS: BP 114/64
[2024-04-11 12:00] VITALS: BP 95/54
[2024-04-11] MEDS ORDERED: ACET325 PO (12:03)
--- NOTE | 2024-04-11 15:49 | NUR ---
DISCHARGE NOTE PATIENT A/OX4, ABLE TO MAKE NEEDS KNOWN. INDEPENDENT IN ROOM. PLEASANT AND COOPERATIVE WITH CARE. TELEMETRY IN PLACE THIS AM, NO EVENTS NOTED. MD NOTIFIED THIS AFTERNOON OF SBP <100. MD STATES NO CONCERNS, PATIENT ASYMPTOMATIC. DISCHARGE INSTRUCTIONS DISCUSSED WITH PATIENT, NEW MEDICATIONS FAXED TO [facility] PER PATIENT REQUEST. FOLLOW APPOINTMENTS DISCUSSED WITH PATIENT. IV AND TELEMETRY REMOVED PRIOR TO DISCHARGE. NO OTHER CONCERNS. PATIENT ASSISTED TO FRIEND'S VEHCILE VIA WHEELCHAIR BY [facility] STAFF.
[2024-04-12] MEDS ORDERED: Furosemide 10 MG/ML 4ML Vial IV SCH (09:00)
== END 2024-04-11 15:43 | disposition home health service (06) | DRG 291 ==
LOC: ER 03:14 → MEDS 05:08 → ERHOLD 05:08 → MEDS 17:15 → ENPENDDIS 04-11 11:41 → MEDS 04-11 15:43
PROVIDERS: Emergency Medicine; Registered Nurse; ADMIT Internal Medicine
DX: I13.0 Hypertensive heart and chronic kidney disease with heart failure and stage 1 through stage 4 chronic kidney disease, or unspecified chronic kidney disease (principal); I50.43 Acute on chronic combined systolic (congestive) and diastolic (congestive) heart failure; J96.01 Acute respiratory failure with hypoxia; E87.20 Acidosis, unspecified; N17.9 Acute kidney failure, unspecified; F32.A Depression, unspecified; J45.909 Unspecified asthma, uncomplicated; I25.10 Atherosclerotic heart disease of native coronary artery without angina pectoris; I70.8 Atherosclerosis of other arteries; E11.22 Type 2 diabetes mellitus with diabetic chronic kidney disease; N18.31 Chronic kidney disease, stage 3a; I34.0 Nonrheumatic mitral (valve) insufficiency; Z79.01 Long term (current) use of anticoagulants; Z79.82 Long term (current) use of aspirin; Z79.899 Other long term (current) drug therapy; Z79.4 Long term (current) use of insulin; Z88.5 Allergy status to narcotic agent; Z88.1 Allergy status to other antibiotic agents; Z88.8 Allergy status to other drugs, medicaments and biological substances; Z95.1 Presence of aortocoronary bypass graft; Z95.5 Presence of coronary angioplasty implant and graft
CPT/HCPCS: 0241U; 36415; 71045; 80048; 80053; 82803; 82947; 83605; 83735; 83880; 84145; 84484; 85025; 85027; 87070; 87205; 93005; 93010; 94640; 94664; 94760; 97116; 97162; 99285-25; A9270; J1815; J1940; J1956

== ENCOUNTER → 2024-04-20 | Outpatient (CLI) | payer SELFPAY ==
[~2024-04-20] MED LIST changes: +ACET325 PO; +PRAM.125 PO
[2024-04-20 14:02] LABS: Albumin, Blood 3.5 g/dL (3.4-5.0); Albumin/Globulin Ratio 0.9 (0.8-1.8); Bilirubin, Total 0.5 mg/dL (0.1-1.0); Bun/Creatinine Ratio 14.3 (12.0-20.0); Calcium, Blood 10.1 mg/dL (8.5-10.1); Creatinine, Blood 1.33 mg/dL (0.40-1.00); Globulin, Blood 3.7 g/dL (2.2-4.0); Potassium, Blood 3.8 mmol/L (3.5-5.5); Total Protein, Blood 7.2 g/dL (6.4-8.2)
== END | disposition home or self-care (01) ==
LOC: LAB 11:40 → LAB SHORT 11:40
PROVIDERS: Nurse Practitioner Family
DX: I50.43 Acute on chronic combined systolic (congestive) and diastolic (congestive) heart failure (principal)
CPT/HCPCS: 80053; 83880